=== PATIENT | female | born 1980 | race Caucasian/White ===

== ENCOUNTER 2021-09-01 08:47 | Outpatient (CLI) | payer SELFPAY | END 2021-09-01 08:48 | disposition home or self-care (01) | LOC: ANHSURGERY 08:53 | PROVIDERS: PCP Family Medicine; Visit Provider Obstetrics & Gynecology | DX: R10.2 Pelvic and perineal pain (principal) | CPT/HCPCS: 36415; 86850; 86900; 86901 ==

== ENCOUNTER 2021-09-06 00:34 | Day surgery (SDC) | payer SELFPAY ==
[2021-08-31 12:54] VITALS: BMI 19.3
--- NOTE | 2021-08-31 13:22 | PC.NURSE ---
Report to the Outpatient Waiting Room, entrance under the green pavilion located off [facility], at time 10:00 on date 09/06/21. OR Time: 12:00. - You and your visitor will be asked a series of questions to screen for COVID 19 for your protection. - A mask is required within the hospital. - Only one visitor is allowed at this time. Patient visitors will be guided where to wait when not with patient. Preoperative COVID Testing Requirements: EMAIL POSITIVE RESULT FROM JUNE TO [email or web address] No COVID Test needed if: (proof is required; if not received patient will have Rapid Test prior to entry) - Patient has received COVID Vaccine at least 14 days prior to procedure date or - Patient has positive COVID test result within last 90 days of surgery date. COVID Test needed if above criteria is not met If not COVID vaccinated a COVID test must be conducted within 72 hours of surgery and patient is asked to isolate self from time of testing until procedure. You will go to the [employer] [facility] Testing Site for your COVID testing. The [employer] [facility] Testing site is located at the corner of [address] [facility]. You will only be called if COVID results are positive and your surgeon may reschedule your elective surgery date. Patients may have clear liquids (water, carbonated beverages, clear teas, apple juice) until 3 hours prior to surgery with a maximum of 20 ounces. - No food from midnight until time of surgery - Infants may have breast milk until 4 hours before surgery, formula 6 hours prior to surgery. - Children will be allowed to drink immediately following surgery. If applicable, please bring a bottle or sippy cup to assist with drinking. Juice, water, soda, and popsicles are readily available. For infants on formula, please bring formula the day of surgery. Pacifiers are allowed. Take the following medications with a SIP of water the morning of surgery: NONE Medications to discontinue per physician: VITAMINS/SUPPLEMENTS Date to take last dose: 09/02/21 Please no make-up, nail afghan, hairspray, perfume, deodorant, or body powder the day of surgery. No jewelry (including any body piercings) or valuables the day of surgery, leave them at home. Please take a shower or bath the night before, or the morning of, surgery with an antibacterial soap. Wear comfortable, loose fitting clothing. Children are encouraged to wear pajamas. - Jewelry must be removed prior to entering the operating room. Rings and piercings that are not removed may be cut off. - The hospital will not accept responsibility for valuables. - Please leave all valuables, including medications, at home the day of surgery. If you are going home after surgery, a licensed tower truck driver must drive you home. - NO public transportation without another adult. - We recommend that an adult stay with you for 24 hours following discharge. - We also recommend that you do not drive, make important decision, drink alcoholic beverages, or take any drugs that were not prescribed by your health care provider for at least 24 hours after your discharge time. For Pediatric surgeries, we recommend two adults accompany the child home (only one inside the building at this time). Follow any additional instructions given to you from your surgeon. Telephone instructions given to ASHLYN ELAM and asked if any additional questions and then verbalized understanding. Patient advised to call surgeon office or pre surgery nurse liaison [phone] if any additional questions.
[2021-09-06] VITALS (8 sets, daily range): BP systolic 109–137; BP diastolic 54–85; PULSE 80–100; RESP 14–20; TEMP 36.6–36.8; O2SAT 100
--- NOTE | 2021-09-06 12:25 | PM.IMHP ---
H&P: HPI History of Present Illness Date/Time: 09/06/21 12:25 40 y/o nulligravida with longstanding low pelvic pain, irregular menses, and intermenstrual spotting. Ultrasound in January showed an unremarkable endometrial complex, functional change in the left adnexa. She is worried that we will try to give her a COVID vaccine while she is asleep. Her chiropractor and business and marketing teacher-father have both advised her against COVID vaccination. Chief Complaint: Pain and bleeding Review of Systems Review of Systems: All systems reviewed & are unremarkable except as noted in HPI and below PMFSH Past Medical History Medical History (Updated 09/06/21 @ 12:29 by Al Ledesma MD) Left lateral epicondylitis Patient request for diagnostic testing Radiculopathy, cervical region Tear of left rotator cuff Surgical History Surgical History History of breast biopsy Family History Family History Other Diabetes mellitus Family history of anemia Family history of arthritis Family history of malignant neoplasm of breast Family history of malignant neoplasm of breast in first degree relative Family history of malignant neoplasm of thyroid Family history of mental disorder Social History Social History Smoking packs per day: 1 Smoking cigarettes per day: 20.0 Years smoked: 8 Smoking pack-years: 8.00 Tobacco type: cigarettes Smoking end date: 09/30/07 Alcohol intake: never Alcohol use details: A COUPLE/MONTH Substance use: never Substance use type: does not use Living arrangements: with family Spiritual care concerns: No Meds Home Medications and Allergies Home Medications Medication Instructions Recorded Confirmed Type ascorbic acid (vitamin C) 1,000 mg 1 gm PO DAILY 11/19/19 08/31/21 History tablet elderberry fruit 200 mg capsule 200 mg PO BID cap 11/19/19 08/31/21 History omega-3 fatty acids 1,000 mg 2,000 mg PO DAILY cap 11/19/19 08/31/21 History capsule Allergies Allergy/AdvReac Type Severity Reaction Status Date / Time cephalexin Allergy Unknown stomach Verified 08/31/21 12:51 upset Gadolinium-Containing Allergy Unknown Unknown Verified 08/31/21 12:51 Contrast Medi STEROID Allergy Severe Anaphylaxis Uncoded 08/31/21 12:51 Exam Const: Orientation/consciousness: patient oriented x3 Other: Well-developed, well-nourished female in no acute distress. Neck: Thyroid: thyroid normal Lymphatic: no lymphadenopathy noted (in neck, axilla or inguinal nodes) Resp: Effort & Inspection: normal respiratory effort Auscultation: clear to auscultation bilaterally Cardio: Rate: regular rate Rhythm: regular rhythm Heart sounds: S1 normal heart sound present and S2 normal heart sound present GI: Other: ABD: Soft, nontender, nondistended. No guarding or rebound tenderness. No hepatosplenomegaly. : General: Yes no CVA tenderness Other: External genitalia: normal female hair distribution, without lesion. Urethral meatus: no lesion, non prolapsed. Bladder: no mass, nontender Vagina: well-estrogenized, without lesion or discharge. No cystocele or rectocele. Cervix: no lesion or discharge. Uterus: small, anteverted, freely mobile, nontender Adnexa: no mass or tenderness. Anus/perineum: no lesions, nontender Back/Spine/Pelvis: Back: no CVA tenderness Skin: General skin exam: normal color and no rashes or lesions noted Neuro: General: patient oriented x3 Extrem: Other: Extremities: nontender with no edema Psych: Mental Status: mental status grossly normal Affect: normal affect Assessment and Plan Assessment and plan (1) Pelvic pain: Code(s): R10.2 - Pelvic and perineal pain Status: Acute Assessment and Plan: A: Longstanding pelvic pain, irregular menses with intermenstrual spotti
[2021-09-06] MEDS: LACTATED RINGERS 1,000 ML 30 ML IV CONT ×2 (13:40→16:36)
[2021-09-06] MEDS: KETOROLAC 15 MG/ML VIAL (*BKC) IV PUSH (13:47)
--- NOTE | 2021-09-06 14:14 | P.PNAN_ITS ---
Anes - Initial Pre Proc Eval Procedure: Operation Date: 09/06/21 12:00 Proposed Procedures p Diagnostic Laparoscopy, Hysteroscopy, Dilatation and Curettage - Al Ledesma MD Date/Time: 09/06/21 14:14 Surgeon: Al Ledesma MD Pre Op Diagnosis: pelvic pain, irregular bleeding Patient Data Age: 40 Gender: F Height: 1.68 m Weight: 54.43 kg Allergies Allergy/AdvReac Type Severity Reaction Status Date / Time cephalexin Allergy Unknown stomach Verified 08/31/21 12:51 upset Gadolinium-Containing Allergy Unknown Unknown Verified 08/31/21 12:51 Contrast Medi STEROID Allergy Severe Anaphylaxis Uncoded 08/31/21 12:51 Home Medications Medication Instructions Recorded Confirmed Type ascorbic acid (vitamin C) 1,000 mg 1 gm PO DAILY 11/19/19 08/31/21 History tablet elderberry fruit 200 mg capsule 200 mg PO BID cap 11/19/19 08/31/21 History omega-3 fatty acids 1,000 mg 2,000 mg PO DAILY cap 11/19/19 08/31/21 History capsule Patient hx anesthesia problems: none Family hx anesthesia problems: none Results Review: All pre-operative results and documents have been reviewed as part of the pre-operative evaluation. [facility] Past Medical History Medical History (Updated 09/06/21 @ 12:29 by Al Ledesma MD) Left lateral epicondylitis Patient request for diagnostic testing Radiculopathy, cervical region Tear of left rotator cuff Surgical History Surgical History History of breast biopsy Family History Family History Other Diabetes mellitus Family history of anemia Family history of arthritis Family history of malignant neoplasm of breast Family history of malignant neoplasm of breast in first degree relative Family history of malignant neoplasm of thyroid Family history of mental disorder Social History Social History Smoking packs per day: 1 Smoking cigarettes per day: 20.0 Years smoked: 8 Smoking pack-years: 8.00 Tobacco type: cigarettes Smoking end date: 09/30/07 Alcohol intake: never Alcohol use details: A COUPLE/MONTH Substance use: never Substance use type: does not use Living arrangements: with family Spiritual care concerns: No Anes - Eval Final PreProcedure Day of Procedure 09/06/21 14:14 Patient weight: thin Heart: regular rate and rhythm Lungs: clear to auscultation and normal air movement Airway: Mallampati scale class IV Neurological: alert and oriented Last oral intake: >/= 8 hours ASA classification: II Emergent: no Anesthetic plan: proceed Anesthesia type and monitoring: general ETT and standard monitoring Results Review: All pre-operative results and documents have been reviewed as part of the pre-operative evaluation. Informed Consent: The patient's anesthetic plan and its attendant risks and benefits were discussed with the patient/family/POA. Questions were solicited and answers provided to the satisfaction of the patient/family/POA.
--- NOTE | 2021-09-06 14:23 | WPDHPUPDATE1 ---
History and Physical Update Update Date/Time: 09/06/21 14:23 History and Physical has been reviewed, including an updated exam of the patient. There are NO changes in the patient's condition. Risks, benefits, and alternatives have been discussed and questions answered. Patient agrees to proceed with procedure.
[2021-09-06] MEDS: LIDOCAINE HCL 1% PF 30 ML VIAL 10 ML INFILTRATE (16:01)
--- NOTE | 2021-09-06 16:35 | W.PM.PROC2 ---
Procedure Note - Detailed Date of Procedure 09/06/21 Pre-op Diagnosis Pelvic pain Irregular vaginal bleeding Post-op Diagnosis same Procedure Performed Diagnostic laparoscopy Hysteroscopy Dilation and sharp curettage Surgeon Al Ledesma MD Anesthesia general and local (1% lidocaine) Findings Liver unremarkable. Vermiform appendix not seen. Uterus, bilateral round and uterosacral ligaments, bilateral tubes and ovaries, anterior and posterior cul de sac all unremarkable. Endometrial cavity with thick tissue, both tubal ostia seen. Description of Procedure The patient was taken to the operating room where general endotracheal anesthesia was administered. She was prepared and draped in the usual sterile fashion in the dorsal lithotomy position. The bladder was drained with a red rubber catheter. A sterile speculum was inserted into the vagina and the anterior lip of the cervix was grasped with a single-toothed tenaculum. The acorn uterine manipulator was placed. The speculum was withdrawn. Gloves were changed and attention was turned to the abdomen. An infraumbilical skin incision was made with a scalpel. The abdomen was tented and a 5 millimeter bladeless trocar trocar was advanced under direct laparoscopic visualization. Pneumoperitoneum was administered using carbon dioxide gas. A survey of the pelvis and abdomen yielded the findings noted above. Hemostasis was excellent. The trocar was withdrawn and the gas was allowed to escape. The skin incision was reapproximated using 4-0 Vicryl in interrupted subcuticular fashion. Dermaflex was applied externally. Attention was then redirected to the vagina, where the acorn uterine manipulator was withdrawn and the speculum reintroduced. Ten mL of 1% lidocaine was administered in a paracervical block. The cervix was then gently dilated using Hegar dilators until an 8 mm dilator could be passed. Hysteroscopy was performed using sterile saline as a distention medium. Findings are as noted above. Sharp curettage was then performed, and endometrial curettings were collected on a Telfa pad and passed off to be sent to pathology. Hemostasis was excellent. Sponge, lap, needle and instrument counts were correct. The patient was awakened and taken to the recovery room in stable condition. I was present and scrubbed through the entire procedure. Implants None Estimated Blood Loss 5 Drains No Packing No Pathology yes (endometrial curettings) Complications None Condition stable Disposition PACU
[2021-09-06] MEDS: oxyCODONE HCL (*CRX) 5 MG TAB IR PO (18:15)
== END 2021-09-06 19:05 | disposition home or self-care (01) ==
PROVIDERS: PCP Family Medicine; Visit Provider Obstetrics & Gynecology
PROC: 0UDB8ZZ Extraction of Endometrium, Via Natural or Artificial Opening Endoscopic (ICD-10-PCS; CPT 58558; principal; 2021-09-06 12:00)
PROC: 0U5B8ZZ Destruction of Endometrium, Via Natural or Artificial Opening Endoscopic (ICD-10-PCS; CPT 58563; 2021-09-06 12:00)
DX: R10.2 Pelvic and perineal pain (principal); N92.1 Excessive and frequent menstruation with irregular cycle; Z87.891 Personal history of nicotine dependence
CPT/HCPCS: 58558; 49320; 88305; A9270; J0131; J0330; J1100; J1885; J2250; J2405; J2704; J3010; J7030; J7120

== ENCOUNTER 2021-12-25 10:14 | Emergency (ER) | payer SELFPAY ==
--- NOTE | ~2021-12-25 | XR_ITS ---
EXAMINATION: XR chest 2V EXAM DATE: 12/25/2021 11:20 INDICATION: Cough and congestion, symptoms one week. TECHNIQUE: Frontal and lateral projections of the chest obtained and reviewed. Comparison is made to prior examination from 04/22/2018. FINDINGS: Mild to moderate hyperinflation. The lungs are clear. There are no pleural effusions. The cardiomediastinal silhouette is within normal limits. There is no pneumothorax suspected. The bone s and soft tissues are unremarkable. IMPRESSION: Mild to moderate hyperinflation unchanged. Reviewed, dictated and finalized at location B.
[2021-12-25 10:18] VITALS: BP 120/75; PULSE 114; RESP 14; TEMP 36.8; O2SAT 100
--- NOTE | 2021-12-25 11:10 | ED.URI ---
HPI - URI/Sore Throat General Chief Complaint: Upper Respiratory Infection Stated Complaint: cough and congestion Time Seen by Provider: 12/25/21 10:59 Source: patient and RN notes reviewed Mode of arrival: ambulatory Limitations: no limitations History of Present Illness HPI Narrative: Patient presents today complaining of 7-day history of productive cough, nasal congestion and ear popping. Denies fever, shortness of breath. She did a telemedicine visit with her PCP and was given a prescription for albuterol and [id number] Mucinex D. States she had a negative COVID-19 and influenza tests. Reports her PCP told her to come in for possible chest x-ray. MD elicited complaint: cough Related Data Home Medications Medication Instructions Recorded Confirmed ascorbic acid (vitamin C) 1,000 mg 1 gm PO DAILY 11/19/19 12/25/21 tablet coenzyme Q10 10 mg capsule 10 mg PO ONCE 10/31/21 12/25/21 Allergies Allergy/AdvReac Type Severity Reaction Status Date / Time cephalexin Allergy Unknown stomach Verified 12/25/21 10:46 upset Gadolinium-Containing Allergy Unknown Unknown Verified 12/25/21 10:46 Contrast Medi STEROID Allergy Severe Anaphylaxis Uncoded 12/25/21 10:46 Review of Systems Review of Systems: CONSTITUTIONAL: Denies body aches, fever, chills, or sweats. EYES: Denies visual changes, redness, or discharge. ENT: Denies rhinorrhea, sore throat, or otalgia.+ Congestion CARDIOVASCULAR: Denies chest pain, palpitations, or edema. RESPIRATORY: Denies dyspnea.+ Cough GASTROINTESTINAL: Denies abdominal pain, nausea, vomiting, or diarrhea. GENITOURINARY: Denies dysuria or hematuria. SKIN: Denies rash, itching, or wounds. MUSCULOSKELETAL: Denies back pain, joint pain, or myalgia. NEUROLOGIC: Denies headache, numbness, tingling, or weakness. PSYCH: Denies depression or anxiety. [facility] Past Medical History Medical History Left lateral epicondylitis Patient request for diagnostic testing Radiculopathy, cervical region Tear of left rotator cuff Surgical History Surgical History History of breast biopsy Family History Family History Other Diabetes mellitus Family history of anemia Family history of arthritis Family history of malignant neoplasm of breast Family history of malignant neoplasm of breast in first degree relative Family history of malignant neoplasm of thyroid Family history of mental disorder Social History Social History Smoking packs per day: 1 Smoking cigarettes per day: 20.0 Years smoked: 8 Smoking pack-years: 8.00 Tobacco type: cigarettes Smoking end date: 09/30/07 Alcohol intake: never Alcohol use details: A COUPLE/MONTH Substance use: never Substance use type: does not use Spiritual care concerns: No Comments At time of signature, I have reviewed and agree with nursing past medical, surgical, social and family history unless otherwise noted. Please see nursing chart for further information. There is no relevant family history pertinent to the presenting complaint Exam Narrative: GENERAL: Well-appearing, well-nourished, and in no acute distress. HEAD: Normocephalic, atraumatic. EYES: EOMI. No redness or drainage. Conjunctivae normal. ENT: Mucous membranes pink and moist. Nares clear. No rhinorrhea. TMs normal bilaterally. Throat normal. Uvula midline. NECK: Normal AROM. Supple. No lymphadenopathy. CHEST: No respiratory distress. Clear to auscultation. HEART: Regular rate and rhythm. No murmur appreciated. Normal peripheral pulses. EXTREMITIES: Normal range of motion. No edema. SKIN: Warm, dry, no rash. Capillary refill normal. Normal skin turgor. NEURO: No focal deficits. Alert and oriented x3. Gait
== END 2021-12-25 12:05 | disposition home or self-care (01) ==
PROVIDERS: Emergency Provider Nurse Practitioner; PCP Family Medicine
DX: J40 Bronchitis, not specified as acute or chronic (principal); J06.9 Acute upper respiratory infection, unspecified; Z87.891 Personal history of nicotine dependence; M54.12 Radiculopathy, cervical region
CPT/HCPCS: 71046; 99213; G0463

== ENCOUNTER 2022-01-08 09:23 | Emergency (ER) | payer SELFPAY ==
--- NOTE | ~2022-01-08 | XR_ITS ---
EXAMINATION: XR chest 2V DATE: 01/08/2022 09:50 INDICATION: Cough TECHNIQUE: PA and lateral views of the chest are obtained. COMPARISON: 12/25/2021 FINDINGS: The lungs are free of acute opacities. There is no pleural effusion or pneumothorax. The ca rdiomediastinal silhouette is normal. The visualized bones and soft tissues are unremarkable. Calcifi ed mediastinal and left hilar lymph nodes are consistent with old granulomatous disease. IMPRESSION: 1. No acute cardiopulmonary abnormality. Reviewed, dictated and finalized at location A.
--- NOTE | 2022-01-08 09:25 | ED.URI ---
HPI - URI/Sore Throat General Chief Complaint: Upper Respiratory Infection Stated Complaint: Deep Cough Time Seen by Provider: 01/08/22 09:25 Source: patient and RN notes reviewed History of Present Illness HPI Narrative: Patient is a 41-year-old female who presents the urgent care with complaints of cough and congestion. Patient states that it started approximately 3 weeks ago. Her PCP originally gave her an inhaler which did not do anything . Patient was then placed on amoxicillin on 12/25 from our facility and had a negative chest x-ray at that time. Patient has not taken anything [id number] for her symptoms. Patient states her PCP is out of town and she was told to go back to urgent care . Patient denies of any fever, chills, nausea, vomiting. Denies any shortness of breath or wheezing. No other complaints. No acute distress noted. Patient aware of the plan of care. Some parts of this dictation were generated by voice recognition software and may contain typographical and/or grammatical inaccuracies. Related Data Home Medications Medication Instructions Recorded Confirmed ascorbic acid (vitamin C) 1,000 mg 1 gm PO DAILY 11/19/19 01/08/22 tablet coenzyme Q10 10 mg capsule 10 mg PO ONCE 10/31/21 01/08/22 Allergies Allergy/AdvReac Type Severity Reaction Status Date / Time cephalexin Allergy Unknown stomach Verified 01/08/22 09:40 upset Gadolinium-Containing Allergy Unknown Unknown Verified 01/08/22 09:40 Contrast Medi STEROID Allergy Severe Anaphylaxis Uncoded 01/08/22 09:40 Review of Systems Review of Systems: CONSTITUTIONAL: Denies fever, chills, or sweats. EYES: Denies visual changes, redness, or discharge. ENT: Denies rhinorrhea, congestion, sore throat, or otalgia. CARDIOVASCULAR: Denies chest pain, palpitations, or edema. RESPIRATORY: Reports of chest congestion and cough without dyspnea GASTROINTESTINAL: Denies abdominal pain, nausea, vomiting, or diarrhea. GENITOURINARY: Denies dysuria or hematuria. SKIN: Denies rash or itching. MUSCULOSKELETAL: Denies back pain, joint pain, or myalgia. NEUROLOGIC: Denies headache, numbness, or weakness. All other systems reviewed are negative, except as documented in HPI. [facility] Past Medical History Medical History Left lateral epicondylitis Patient request for diagnostic testing Radiculopathy, cervical region Tear of left rotator cuff Surgical History Surgical History History of breast biopsy Family History Family History Other Diabetes mellitus Family history of anemia Family history of arthritis Family history of malignant neoplasm of breast Family history of malignant neoplasm of breast in first degree relative Family history of malignant neoplasm of thyroid Family history of mental disorder Social History Social History Smoking packs per day: 1 Smoking cigarettes per day: 20.0 Years smoked: 8 Smoking pack-years: 8.00 Tobacco type: cigarettes Smoking end date: 09/30/07 Alcohol intake: never Alcohol use details: A COUPLE/MONTH Substance use: never Substance use type: does not use Spiritual care concerns: No Comments At the time of my signature, I reviewed and agree with the nursing past medical, surgical, social, and family history. There is no relevant family history pertinent to the patient complaint. Exam Narrative: GENERAL: This is a well-nourished, well-developed patient, in no apparent distress. HEAD: normocephalic, atraumatic. EYES: PERRL. Sclera clear/white. Vision is grossly intact. EARS: External ears normal, auditory canals clear and without drainage, TMs normal without perforation. Hearing grossly intact. NOSE: External nose normal with no obvious
[2022-01-08 09:28] VITALS: BP 108/73; PULSE 110; RESP 16; TEMP 37.2; O2SAT 100
== END 2022-01-08 10:05 | disposition home or self-care (01) ==
PROVIDERS: Emergency Provider Nurse Practitioner Family; PCP Family Medicine
DX: J40 Bronchitis, not specified as acute or chronic (principal); Z87.891 Personal history of nicotine dependence
CPT/HCPCS: 71046; 99213; G0463

== ENCOUNTER 2022-01-08 17:09 | Emergency (ER) | payer SELFPAY ==
[2022-01-08 17:38] VITALS: BP 152/92; PULSE 98; RESP 16; TEMP 36.3; O2SAT 100
--- NOTE | 2022-01-08 20:15 | ED.URI ---
HPI - URI/Sore Throat General Chief Complaint: Upper Respiratory Infection Stated Complaint: bronchitis issues Time Seen by Provider: 01/08/22 19:32 Source: patient History of Present Illness HPI Narrative: Patient presents with concern for bronchitis. Prescription has had a cough for the past couple weeks and her primary care doctor and urgent care she has been treated with albuterol amoxicillin however she continues have symptoms so she came to the ER for evaluation. Reports his cough is nonproductive she also reports a lot of sinus pressure she initially had fevers and those have now resolved. Reports has had multiple Covid test which were negative chest x-rays which were unremarkable. She denies any nausea vomiting or diarrhea. 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 Related Data Home Medications Medication Instructions Recorded Confirmed ascorbic acid (vitamin C) 1,000 mg 1 gm PO DAILY 11/19/19 01/08/22 tablet coenzyme Q10 10 mg capsule 10 mg PO ONCE 10/31/21 01/08/22 Allergies Allergy/AdvReac Type Severity Reaction Status Date / Time cephalexin Allergy Unknown stomach Verified 01/08/22 09:40 upset Gadolinium-Containing Allergy Unknown Unknown Verified 01/08/22 09:40 Contrast Medi STEROID Allergy Severe Anaphylaxis Uncoded 01/08/22 09:40 Review of Systems Review of Systems: CONSTITUTIONAL: Denies fever, chills, or sweats. EYES: Denies visual changes, redness, or discharge. ENT: Denies rhinorrhea, congestion, sore throat, or otalgia. CARDIOVASCULAR: Denies chest pain, palpitations, or edema. RESPIRATORY: Denies dyspnea. GASTROINTESTINAL: Denies abdominal pain, nausea, vomiting, or diarrhea. GENITOURINARY: Denies dysuria or hematuria. SKIN: Denies rash or itching. MUSCULOSKELETAL: Denies back pain, joint pain, or myalgia. NEUROLOGIC: Denies headache, numbness, dizziness, or weakness. PSYCHIATRIC: Denies anxiety or depression. All systems reviewed & are unremarkable except as noted in HPI and below PMFSH Past Medical History Medical History Left lateral epicondylitis Patient request for diagnostic testing Radiculopathy, cervical region Tear of left rotator cuff Surgical History Surgical History History of breast biopsy Family History Family History Other Diabetes mellitus Family history of anemia Family history of arthritis Family history of malignant neoplasm of breast Family history of malignant neoplasm of breast in first degree relative Family history of malignant neoplasm of thyroid Family history of mental disorder Social History Social History Smoking packs per day: 1 Smoking cigarettes per day: 20.0 Years smoked: 8 Smoking pack-years: 8.00 Tobacco type: cigarettes Smoking end date: 09/30/07 Alcohol intake: never Alcohol use details: A COUPLE/MONTH Substance use: never Substance use type: does not use Spiritual care concerns: No Exam Narrative: GENERAL: Well-appearing, well-nourished, and in no acute distress. HEAD: Normocephalic, atraumatic. EYES: PERRLA and EOMI. ENT: Nares clear, no rhinorrhea or epistaxis. Mucous membranes moist. NECK: Supple. No masses. No JVD CHEST: Clear to auscultation. No respiratory distress. No wheezes rales or rhonchi HEART: Regular rate and rhythm. No murmur heard. Normal peripheral pulses. EXTREMITIES: Normal range of motion. No edema. SKIN: Warm, dry, no rash. NEURO: No focal deficits. Alert and oriented x3. PSYCH: Normal mood and affect. Course Vital Signs Vital signs: Vital Signs Temperature 36.3 C L 01/08/22 17:38 Pulse Rate 98 01/08/22 17:38 Respiratory Rate 16 01/08/22 17:38 Blood Pressure 152/92 H 01/08/22 17:38 Pulse Oximetry 100
[2022-01-08 20:33] VITALS: PULSE 78; RESP 18; O2SAT 99
== END 2022-01-08 20:34 | disposition home or self-care (01) ==
PROVIDERS: Emergency Provider Emergency Medicine; PCP Family Medicine
DX: R05.9 Cough, unspecified (principal); F17.210 Nicotine dependence, cigarettes, uncomplicated
CPT/HCPCS: 99283

== ENCOUNTER 2022-03-01 17:28 | Emergency (ER) | payer SELFPAY ==
--- NOTE | ~2022-03-01 | XR_ITS ---
EXAMINATION: XR hand LT min 3V INDICATION: Left hand pain TECHNIQUE: Three views of the left hand are obtained. COMPARISON: None FINDINGS: Bone alignment is normal. No fracture is identified. Heterotopic ossification lateral to th e second distal interphalangeal joint has a chronic appearance. The joint spaces are normal. The soft tissues are unremarkable. IMPRESSION: 1. No acute osseous abnormality. Reviewed, dictated and finalized at location F.
[2022-03-01 17:33] VITALS: BP 109/72; PULSE 97; RESP 16; TEMP 36.9; O2SAT 100
--- NOTE | 2022-03-01 17:37 | ED.UPPEXIN ---
HPI - Extremity Injury (Upper) General Chief Complaint: Extremity Injury, Upper Stated Complaint: left hand injury Time Seen by Provider: 03/01/22 17:38 Source: patient and RN notes reviewed History of Present Illness HPI narrative: Patient is a 41-year-old female who presents the urgent care with complaints of left wrist/hand pain. 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 Patient states it happened at approximately 330 this afternoon and she has not taken anything for pain or used ice for comfort. No other acute plaints or injuries. No acute distress noted. Patient aware of the plan of care. Some parts of this dictation were generated by voice recognition software and may contain typographical and/or grammatical inaccuracies. Related Data Home Medications Medication Instructions Recorded Confirmed ascorbic acid (vitamin C) 1,000 mg 1 gm PO DAILY 11/19/19 01/24/22 tablet coenzyme Q10 10 mg capsule 10 mg PO ONCE 10/31/21 01/24/22 Allergies Allergy/AdvReac Type Severity Reaction Status Date / Time cephalexin Allergy Unknown stomach Verified 03/01/22 17:39 upset Gadolinium-Containing Allergy Unknown Unknown Verified 03/01/22 17:39 Contrast Medi STEROID Allergy Severe Anaphylaxis Uncoded 03/01/22 17:39 Review of Systems Review of Systems: CONSTITUTIONAL: Denies fever, chills, or sweats. EYES: Denies visual changes, redness, or discharge. ENT: Denies rhinorrhea, congestion, sore throat, or otalgia. CARDIOVASCULAR: Denies chest pain, palpitations, or edema. RESPIRATORY: Denies cough or dyspnea. GASTROINTESTINAL: Denies abdominal pain, nausea, vomiting, or diarrhea. GENITOURINARY: Denies dysuria or hematuria. SKIN: Denies rash or itching. MUSCULOSKELETAL: Left wrist/hand pain NEUROLOGIC: Denies headache, numbness, or weakness. All other systems reviewed are negative, except as documented in HPI. [facility] Past Medical History Medical History Left lateral epicondylitis Patient request for diagnostic testing Radiculopathy, cervical region Tear of left rotator cuff Surgical History Surgical History History of breast biopsy Family History Family History Other Diabetes mellitus Family history of anemia Family history of arthritis Family history of malignant neoplasm of breast Family history of malignant neoplasm of breast in first degree relative Family history of malignant neoplasm of thyroid Family history of mental disorder Social History Social History Smoking packs per day: 1 Smoking cigarettes per day: 20.0 Years smoked: 8 Smoking pack-years: 8.00 Tobacco type: cigarettes Smoking end date: 09/30/07 Alcohol intake: never Alcohol use details: A COUPLE/MONTH Substance use: never Substance use type: does not use Spiritual care concerns: No Comments At the time of my signature, I reviewed and agree with the nursing past medical, surgical, social, and family history. There is no relevant family history pertinent to the patient complaint. Exam Narrative: GENERAL: This is a well-nourished, well-developed patient, in no apparent distress. HEAD: normocephalic, atraumatic. EYES: PERRL. Sclera clear/white. Vision is grossly intact. EARS: External ears normal NOSE: External nose normal with no obvious nasal discharge, nares without redness, no rhinorrhea. THROAT: Mucous membranes moist NECK: Neck supple SKIN: warm, intact with no suspicious lesions or rash, good texture and turgor. NEURO: awake, alert, and oriented to person, place and time. There were no obvious focal neurologic abnormalities. EXTREMITIES: Small contusion with ecchymosis to t
== END 2022-03-01 18:13 | disposition home or self-care (01) ==
PROVIDERS: Emergency Provider Nurse Practitioner Family; PCP Family Medicine
DX: S60.212A Contusion of left wrist, initial encounter (principal); S60.222A Contusion of left hand, initial encounter; Y00.XXXA Assault by blunt object, initial encounter; Z87.891 Personal history of nicotine dependence
CPT/HCPCS: 73130; 99213; G0463

== ENCOUNTER 2022-08-15 13:15 | Emergency (ER) | payer SELFPAY ==
[2022-08-15 13:21] VITALS: BP 112/67; PULSE 103; RESP 16; TEMP 37.1; O2SAT 100
--- NOTE | 2022-08-15 13:40 | ED.URI ---
HPI - URI/Sore Throat General Chief Complaint: Upper Respiratory Infection Stated Complaint: Congestion/Ear Problem/Cough Time Seen by Provider: 08/15/22 13:40 Source: patient, RN notes reviewed and old records reviewed Mode of arrival: ambulatory Limitations: no limitations History of Present Illness HPI Narrative: 41-year-old female presents to [facility] with 4 day complaint of head congestion, ear pressure with crackling, chest congestion with expectoration of yellowish green sputum. Patient states she has also had some headaches and chills, does not known if she has had fevers or not but reports felt feverish. Patient reports that she did a COVID test at home which was negative this morning. Patient denies any shortness of breath or any wheezing states chest sore from coughing. MD elicited complaint: cough, rhinorrhea, nasal congestion and other (ear pain) Onset (ago): day(s) (4) Treatments prior to arrival: other (essential oils) Related Data Allergies Allergy/AdvReac Type Severity Reaction Status Date / Time cephalexin Allergy Unknown stomach Verified 08/15/22 13:33 upset Gadolinium-Containing Allergy Unknown Unknown Verified 08/15/22 13:33 Contrast Medi azithromycin Allergy Swelling Verified 08/15/22 14:35 STEROID Allergy Severe Anaphylaxis Uncoded 08/15/22 14:34 Review of Systems Review of Systems: CONSTITUTIONAL: Reports malaise, chills, sweats,felt feverish EYES: Denies visual changes, redness, or discharge. ENT: Reports rhinorrhea, congestion,no sinus pain,positive for bilateral otalgia, no sore throat. CARDIOVASCULAR: Denies chest pain, palpitations, or edema. RESPIRATORY: Reports cough.? Denies dyspnea, reports chest is sore from coughing GASTROINTESTINAL: Denies abdominal pain, nausea, vomiting, diarrhea SKIN: Denies rash or itching. MUSCULOSKELETAL: Denies myalgia. NEUROLOGIC: Reports headache. All systems reviewed & are unremarkable except as noted in HPI and below PMFSH Past Medical History Medical History (Updated 08/16/22 @ 00:00 by Brynn De La Fuente) Left lateral epicondylitis Patient request for diagnostic testing Radiculopathy, cervical region Tear of left rotator cuff Surgical History Surgical History (Updated 07/12/22 @ 11:08 by Sienna Melendez MA) H/O dilation and curettage History of breast biopsy Family History Family History Other Diabetes mellitus Family history of anemia Family history of arthritis Family history of malignant neoplasm of breast Family history of malignant neoplasm of breast in first degree relative Family history of malignant neoplasm of thyroid Family history of mental disorder Social History Social History (Updated 08/17/22 @ 15:03 by Lara Ramirez NP) Smoking packs per day: 1 Smoking cigarettes per day: 20.0 Years smoked: 8 Smoking pack-years: 8.00 Smoking status: Former smoker Tobacco type: cigarettes Smoking end date: 09/30/07 Alcohol intake: current Alcohol use details: A COUPLE/MONTH Substance use: never Substance use type: does not use Gender identity (if verbalized by the patient): Female Spiritual care concerns: No Comments At time of signature, agree with nursing past medical, surgical, social and family history. There is no relevant family history pertinent to the presenting complaint Exam Narrative: GENERAL: Well-appearing, well-nourished, and in no acute distress. HEAD: Normocephalic EYES: PERRLA, conjunctivae clear ENT: Nares clear, turbinates edematous and erythematous, clear discharge. Mucous membranes moist. TM pearly fowler with dull light reflex bilaterally; no tragal tenderness. Oropharynx erythematous without lesions. Tonsils not enlarged and without exudate, no drooling, no hoarseness, no trismus, uvula midline, post nasal drainage noted NECK: Supple. No lymphadenopathy CHEST: Clear to auscultatio
== END 2022-08-15 14:45 | disposition home or self-care (01) ==
PROVIDERS: Emergency Provider Registered Nurse; PCP Family Medicine
DX: J06.9 Acute upper respiratory infection, unspecified (principal); Z87.891 Personal history of nicotine dependence
CPT/HCPCS: 87804; 99213; G0463

== ENCOUNTER 2022-11-15 19:04 | Emergency (ER) | payer OTHER, SELFPAY ==
[2022-11-15 19:10] VITALS: BP 127/88; PULSE 105; RESP 16; TEMP 36.7; O2SAT 100
--- NOTE | 2022-11-15 19:22 | ED.URI ---
HPI - URI/Sore Throat General Chief Complaint: Upper Respiratory Infection Stated Complaint: cough congestion Source: patient and RN notes reviewed History of Present Illness HPI Narrative: 42-year-old female presents to urgent care with family at side. Patient states 2 days ago she began having congestion, runny nose, and pressure in her sinuses. Patient denies any fevers, chills, vomiting, diarrhea, or shortness of breath. Patient does report a cough as well and has chest pain and burning with coughing. Patient is not taking anything for her symptoms. Some parts of this dictation were generated by voice recognition software and may contain typographical and/or grammatical inaccuracies. Related Data Allergies Allergy/AdvReac Type Severity Reaction Status Date / Time cephalexin Allergy Unknown stomach Verified 11/15/22 19:11 upset Gadolinium-Containing Allergy Unknown Unknown Verified 11/15/22 19:11 Contrast Medi azithromycin Allergy Swelling Verified 11/15/22 19:11 STEROID Allergy Severe Anaphylaxis Uncoded 08/15/22 14:34 Review of Systems Review of Systems: CONSTITUTIONAL: Denies fever, chills, or sweats. EYES: Denies visual changes, redness, or discharge. ENT: Reports congestion and runny nose CARDIOVASCULAR: Denies chest pain, palpitations, or edema. RESPIRATORY: Denies cough or dyspnea. GASTROINTESTINAL: Denies abdominal pain, nausea, vomiting, or diarrhea. GENITOURINARY: Denies dysuria or hematuria. SKIN: Denies rash or itching. MUSCULOSKELETAL: Denies back pain, joint pain, or myalgia. NEUROLOGIC: Denies headache, numbness, or weakness. [facility] Past Medical History Medical History (Updated 11/15/22 @ 19:23 by Shayla Fields APRN) Left lateral epicondylitis Patient request for diagnostic testing Radiculopathy, cervical region Tear of left rotator cuff Surgical History Surgical History (Updated 07/12/22 @ 11:08 by Sienna Melendez MA) H/O dilation and curettage History of breast biopsy Family History Family History Other Diabetes mellitus Family history of anemia Family history of arthritis Family history of malignant neoplasm of breast Family history of malignant neoplasm of breast in first degree relative Family history of malignant neoplasm of thyroid Family history of mental disorder Social History Social History (Updated 08/17/22 @ 15:03 by Lara Ramirez NP) Smoking packs per day: 1 Smoking cigarettes per day: 20.0 Years smoked: 8 Smoking pack-years: 8.00 Smoking status: Former smoker Tobacco type: cigarettes Smoking end date: 09/30/07 Alcohol intake: current Alcohol use details: A COUPLE/MONTH Substance use: never Substance use type: does not use Living arrangements: with family Gender identity (if verbalized by the patient): Female Spiritual care concerns: No Comments At the time of my signature, I reviewed and agree with the nursing past medical, surgical, social, and family history. There is no relevant family history pertinent to the patient complaint. Exam Narrative: GENERAL: This is a well-nourished, well-developed patient, in no apparent distress. HEAD: normocephalic, atraumatic. EYES: PERRL. Sclera clear/white. Vision is grossly intact. EARS: External ears normal, auditory canals clear and without drainage, TMs normal without perforation. Hearing grossly intact. NOSE: External nose normal with no obvious nasal discharge, nares without redness, no rhinorrhea. THROAT: Mucous membranes moist, posterior pharynx clear. NECK: Neck supple, non-tender without lymphadenopathy, masses or thyromegaly. CARDIOVASCULAR: Regular rate and rhythm without murmurs, gallops, or rubs. RESPIRATORY: Clear to auscultation. Breath sounds equal bilaterally. No wheezes, rales, or rhonchi. GASTROINTESTINAL: Abdomen soft, non-tender, nondistended. Bowel sounds are active. No hepato-splenomeg
== END 2022-11-15 19:24 | disposition home or self-care (01) ==
PROVIDERS: Emergency Provider Nurse Practitioner Family; PCP Family Medicine
DX: J06.9 Acute upper respiratory infection, unspecified (principal); Z87.891 Personal history of nicotine dependence
CPT/HCPCS: 99213; G0463

== ENCOUNTER 2023-01-03 18:59 | Emergency (ER) | payer OTHER, SELFPAY ==
--- NOTE | ~2023-01-03 | XR_ITS ---
XR elbow LT min 3V DATE: 01/03/2023 19:22 INDICATION: Fall today, landing on left elbow. Pain with movement TECHNIQUE: 4 views COMPARISON: None FINDINGS: No fracture or dislocation or joint effusion. No periosteal reaction or bone destruction. IMPRESSION: Negative Reviewed, dictated and finalized at location A. IMPRESSION: Negative
--- NOTE | 2023-01-03 19:06 | ED.UPPEXIN ---
HPI - Extremity Injury (Upper) General Chief Complaint: Extremity Injury, Upper Stated Complaint: Fall Injury/Left Arm Source: patient and RN notes reviewed History of Present Illness HPI narrative: 42 yo F presents to urgent care with complaints of left elbow pain. Pt reports associated numbness and tingling to her left hand, intermittently. Pt states she was carrying a large box this am when she tripped and fell onto her left side. Pt states she landed on hardwood ton, onto her left elbow. Pt denies any head injury, neck pain, LOC, shoulder pain, abdominal pain, chest pain, or SOB. Related Data Allergies Allergy/AdvReac Type Severity Reaction Status Date / Time cephalexin Allergy Unknown stomach Verified 01/03/23 19:13 upset Gadolinium-Containing Allergy Unknown Unknown Verified 01/03/23 19:13 Contrast Medi azithromycin Allergy Swelling Verified 01/03/23 19:13 STEROID Allergy Severe Anaphylaxis Uncoded 01/03/23 19:13 Review of Systems Review of Systems: Pertinent positives and pertinent negatives per HPI. [facility] Past Medical History Medical History (Updated 01/03/23 @ 19:39 by Shayla Fields APRN) Left lateral epicondylitis Patient request for diagnostic testing Radiculopathy, cervical region Tear of left rotator cuff Surgical History Surgical History (Updated 07/12/22 @ 11:08 by Sienna Melendez MA) H/O dilation and curettage History of breast biopsy Family History Family History Other Diabetes mellitus Family history of anemia Family history of arthritis Family history of malignant neoplasm of breast Family history of malignant neoplasm of breast in first degree relative Family history of malignant neoplasm of thyroid Family history of mental disorder Social History Social History (Updated 08/17/22 @ 15:03 by Lara Ramirez NP) Smoking packs per day: 1 Smoking cigarettes per day: 20.0 Years smoked: 8 Smoking pack-years: 8.00 Smoking status: Former smoker Tobacco type: cigarettes Smoking end date: 09/30/07 Alcohol intake: current Alcohol use details: A COUPLE/MONTH Substance use: never Substance use type: does not use Living arrangements: with family Gender identity (if verbalized by the patient): Female Spiritual care concerns: No Comments At the time of my signature, I reviewed and agree with the nursing past medical, surgical, social, and family history. There is no relevant family history pertinent to the patient complaint. Exam Narrative: GENERAL: This is a well-nourished, well-developed patient, in no apparent distress. HEAD: normocephalic, atraumatic. EYES: PERRL. Sclera clear/white. Vision is grossly intact. EARS: External ears normal, auditory canals clear and without drainage, TMs normal without perforation. Hearing grossly intact. NOSE: External nose normal with no obvious nasal discharge, nares without redness, no rhinorrhea. THROAT: Mucous membranes moist, posterior pharynx clear. NECK: Neck supple, non-tender without lymphadenopathy, masses or thyromegaly. CARDIOVASCULAR: Regular rate RESPIRATORY: Clear to auscultation. Breath sounds equal bilaterally. No wheezes, rales, or rhonchi. GASTROINTESTINAL: Abdomen soft, non-tender, nondistended. Bowel sounds are active. No hepato-splenomegaly, or palpable masses. No guarding. SKIN: warm, intact with no suspicious lesions or rash, good texture and turgor. NEURO: awake, alert, and oriented to person, place and time. There were no obvious focal neurologic abnormalities. EXTREMITIES: Full ROM without issue. Pt slightly tender over lateral elbow. Course Course Level of Care: Express Care Visit Vital Signs Vital signs: Vital Signs Temperature 98.8 F 01/03/23 19:13 Pulse Rate 85 01/03/23 19:13 Respiratory Rate 16 01/03/23 19:13 Blood Pressure 117/84 01/03/23 19:13 Pulse Oximetry 100 01/03/23 19:13 Oxygen
[2023-01-03 19:13] VITALS: BP 117/84; PULSE 85; RESP 16; TEMP 37.1; O2SAT 100
== END 2023-01-03 19:48 | disposition home or self-care (01) ==
PROVIDERS: Emergency Provider Nurse Practitioner Family; PCP Family Medicine
DX: S50.02XA Contusion of left elbow, initial encounter (principal); W01.0XXA Fall on same level from slipping, tripping and stumbling without subsequent striking against object, initial encounter
CPT/HCPCS: 73080; 99213; G0463

== ENCOUNTER 2023-01-30 15:32 | Emergency (ER) | payer OTHER, SELFPAY ==
--- NOTE | ~2023-01-30 | XR_ITS ---
EXAM: XR ankle LT min 3V DATE: 01/30/2023 16:07 HISTORY: HIT IN LATERAL ANKLE, BRUISING/PAIN AT LATERAL MALLEOLUS . COMPARISON: None available. FINDINGS: Decreased mineralization. No fracture or dislocation. No lytic or blastic lesion. Joint sp aces are maintained. No erosion or periosteal change. Soft tissues within normal limits. IMPRESSION: No acute osseous finding in the left ankle. Reviewed, dictated and finalized at location K.
[2023-01-30 15:38] VITALS: BP 124/74; PULSE 100; RESP 16; TEMP 37.2; O2SAT 100
--- NOTE | 2023-01-30 16:11 | ED.LOWEXIN ---
HPI - Extremity Injury (Lower) General Chief Complaint: Extremity Injury, Lower Stated Complaint: cough/left ankle injury Source: patient and RN notes reviewed History of Present Illness HPI Narrative: 42-year-old female presents to urgent care with daughter at side. Patient reports a slight cough on with her daughter. Patient is also reporting left lateral ankle pain and swelling after a toddler hit her left lateral ankle with a plastic truck prior to arrival. Denies any fevers, chills, shortness of breath, chest pain, ear pain, sore throat, abdominal pain, or vomiting. Patient does report bilateral ear pressure. Some parts of this dictation were generated by voice recognition software and may contain typographical and/or grammatical inaccuracies. Related Data Home Medications Medication Instructions Recorded Confirmed No Home Medications 01/30/23 01/30/23 Allergies Allergy/AdvReac Type Severity Reaction Status Date / Time cephalexin Allergy Unknown stomach Verified 01/30/23 15:39 upset Gadolinium-Containing Allergy Unknown Unknown Verified 01/30/23 15:39 Contrast Medi azithromycin Allergy Swelling Verified 01/30/23 15:39 STEROID Allergy Severe Anaphylaxis Uncoded 01/30/23 15:39 Review of Systems Review of Systems: Pertinent positives and pertinent negatives per HPI. FORMERLY [facility] Past Medical History Medical History (Updated 01/30/23 @ 16:16 by Shayla Fields, MAGUE) Left lateral epicondylitis Patient request for diagnostic testing Radiculopathy, cervical region Tear of left rotator cuff Surgical History Surgical History (Updated 07/12/22 @ 11:08 by Sienna Melendez MA) H/O dilation and curettage History of breast biopsy Family History Family History Other Diabetes mellitus Family history of anemia Family history of arthritis Family history of malignant neoplasm of breast Family history of malignant neoplasm of breast in first degree relative Family history of malignant neoplasm of thyroid Family history of mental disorder Social History Social History (Updated 08/17/22 @ 15:03 by Lara Ramirez NP) Smoking packs per day: 1 Smoking cigarettes per day: 20.0 Years smoked: 8 Smoking pack-years: 8.00 Smoking status: Former smoker Tobacco type: cigarettes Smoking end date: 09/30/07 Alcohol intake: current Alcohol use details: A COUPLE/MONTH Substance use: never Substance use type: does not use Living arrangements: with family Gender identity (if verbalized by the patient): Female Spiritual care concerns: No Comments At the time of my signature, I reviewed and agree with the nursing past medical, surgical, social, and family history. There is no relevant family history pertinent to the patient complaint. Exam Narrative: GENERAL: This is a well-nourished, well-developed patient, in no apparent distress. HEAD: normocephalic, atraumatic. EYES: Sclera clear/white. Vision is grossly intact. EARS: External ears normal, auditory canals clear and without drainage, TMs normal without perforation. Hearing grossly intact. NOSE: External nose normal with no obvious nasal discharge, nares without redness, no rhinorrhea. THROAT: Mucous membranes moist, posterior pharynx clear. NECK: Neck supple, non-tender without lymphadenopathy, masses or thyromegaly. CARDIOVASCULAR: Regular rate and rhythm without murmurs, gallops, or rubs. RESPIRATORY: Clear to auscultation. Breath sounds equal bilaterally. No wheezes, rales, or rhonchi. SKIN: warm, intact with no suspicious lesions or rash, good texture and turgor. NEURO: awake, alert, and oriented to person, place and time. There were no obvious focal neurologic abnormalities. EXTREMITIES: Mild edema noted to left lateral ankle. BACK: Nontender without deformity or crepitance. No flank tenderness. Course Course Level of Care: Express Care Visit Vital
== END 2023-01-30 16:20 | disposition home or self-care (01) ==
PROVIDERS: Emergency Provider Nurse Practitioner Family; PCP Family Medicine
DX: R05.1 Acute cough (principal); S90.02XA Contusion of left ankle, initial encounter; W22.8XXA Striking against or struck by other objects, initial encounter; Z87.891 Personal history of nicotine dependence
CPT/HCPCS: 73610; 99213; G0463

== ENCOUNTER 2023-02-06 18:00 | Emergency (ER) | payer OTHER, SELFPAY ==
--- NOTE | ~2023-02-06 | XR_ITS ---
EXAMINATION: XR chest 2V Exam Date/Time: 02/06/2023 18:45 CDT HISTORY: PRODUCTIVE COUGH X 10 DAYS Comparison: 01/08/2022. RESULT: Lines, tubes, and devices: None. Lungs and pleura: Clear. Cardiomediastinal silhouette: Stable. Calcified hilar lymph node. Other: No acute osseous or upper abdominal finding. IMPRESSION: No acute cardiopulmonary process. Reviewed, dictated and finalized at location K.
[2023-02-06 18:10] VITALS: BP 115/76; PULSE 120; RESP 18; TEMP 37.5; O2SAT 100
--- NOTE | 2023-02-06 19:14 | ED.URI ---
HPI - URI/Sore Throat General Chief Complaint: Upper Respiratory Infection Stated Complaint: cough/wants x ray Time Seen by Provider: 02/06/23 19:10 Source: patient and RN notes reviewed Mode of arrival: ambulatory Limitations: no limitations History of Present Illness HPI Narrative: 42-year-old female presents with concern for 2 week history of cough, nasal congestion, ear pressure, rib pain from coughing. Reports productive cough. Reports she has been taking [id number] medications without relief. She denies fever. Reports chills MD elicited complaint: cough and nasal congestion Related Data Allergies Allergy/AdvReac Type Severity Reaction Status Date / Time cephalexin Allergy Unknown stomach Verified 02/06/23 18:27 upset Gadolinium-Containing Allergy Unknown Unknown Verified 02/06/23 18:27 Contrast Medi azithromycin Allergy Swelling Verified 02/06/23 18:27 STEROID Allergy Severe Anaphylaxis Uncoded 02/06/23 18:27 Review of Systems Review of Systems: CONSTITUTIONAL: Reports malaise, chills. Denies sweats, or fever. EYES: Denies visual changes, redness, or discharge. ENT: Reports rhinorrhea, congestion, sinus pain. Denies otalgia and sore throat. CARDIOVASCULAR: Denies chest pain, palpitations, or edema. RESPIRATORY: Reports productive cough. Denies dyspnea. GASTROINTESTINAL: Denies abdominal pain, nausea, vomiting, diarrhea SKIN: Denies rash or itching. MUSCULOSKELETAL: Denies myalgia. Reports rib pain with coughing NEUROLOGIC: Denies headache. All systems reviewed & are unremarkable except as noted in HPI and below PMFSH Past Medical History Medical History (Updated 02/06/23 @ 19:28 by Radha Mijares NP) Left lateral epicondylitis Patient request for diagnostic testing Radiculopathy, cervical region Tear of left rotator cuff Surgical History Surgical History (Updated 07/12/22 @ 11:08 by Sienna Melendez MA) H/O dilation and curettage History of breast biopsy Family History Family History Other Diabetes mellitus Family history of anemia Family history of arthritis Family history of malignant neoplasm of breast Family history of malignant neoplasm of breast in first degree relative Family history of malignant neoplasm of thyroid Family history of mental disorder Social History Social History (Updated 08/17/22 @ 15:03 by Lara Ramirez NP) Smoking packs per day: 1 Smoking cigarettes per day: 20.0 Years smoked: 8 Smoking pack-years: 8.00 Smoking status: Former smoker Tobacco type: cigarettes Smoking end date: 09/30/07 Alcohol intake: current Alcohol use details: A COUPLE/MONTH Substance use: never Substance use type: does not use Living arrangements: with family Gender identity (if verbalized by the patient): Female Spiritual care concerns: No Comments At time of signature, agree with nursing past medical, surgical, social and family history. There is no relevant family history pertinent to the presenting complaint Exam Narrative: GENERAL: Nontoxic-appearing and in no acute distress. HEAD: Normocephalic EYES: PERRLA, conjunctivae clear ENT: Nares clear, turbinates edematous and erythematous. Mucous membranes moist. TM pearly fowler with dull light reflex bilaterally; no tragal tenderness. Oropharynx not erythematous without lesions. Tonsils not enlarged and without exudate, no drooling, no hoarseness, no trismus, uvula midline. NECK: Supple. No lymphadenopathy CHEST: Clear to auscultation, breath sounds equal. No wheezing, rhonchi, rales, or stridor. No respiratory distress, speaks in full sentences. Cough noted HEART: Regular rate and rhythm. No murmur heard. SKIN: Warm, dry, no rash. NEURO: Alert and oriented x3. PSYCH: Normal mood and affect Course Course Emergency Course: Patient is aware of diagnosis, understands and agrees to treatment plan. Anticipatory
== END 2023-02-06 19:35 | disposition home or self-care (01) ==
PROVIDERS: Emergency Provider Nurse Practitioner; PCP Family Medicine
DX: J32.9 Chronic sinusitis, unspecified (principal); J40 Bronchitis, not specified as acute or chronic; Z87.891 Personal history of nicotine dependence
CPT/HCPCS: 71046; 99213; G0463

== ENCOUNTER → 2023-02-26 10:03 | Outpatient (CLI) | payer OTHER, SELFPAY ==
--- NOTE | ~2023-02-26 | CT_ITS ---
EXAMINATION: CT sinus wo con DATE: 02/26/2023 10:22 INDICATION: Recurrent URI/cough TECHNIQUE: Computed tomography (CT) of the paranasal sinuses was performed without intravenous contra st. The dose-length product (DLP) was 431.77 mGy-cm. Iterative reconstruction was used. COMPARISON: None FINDINGS: There is normal development and pneumatization of the paranasal sinuses. Aerated secretions in the right frontal sinus Small retention cyst/polyps in the right inferior maxillary sinus. Mild m ucosal thickening in the bilateral inferior medullary sinuses, the right frontal and to a lesser exte nt, left medial frontal as well as bilateral anterior and middle ethmoid air cells. The remaining aer ated spaces are clear. The bilateral ostiomeatal complexes are patent. Bilateral opacification of the frontal ethmoid drainage. Visualized soft tissues are unremarkable. IMPRESSION: 1. Aerated secretions in the right frontal sinus may reflect acute sinusitis in the appropriate clini soniya context. 2. Frontal ethmoid and maxillary mucoperiosteal disease. Reviewed, dictated and finalized at location K. IMPRESSION: 1. Aerated secretions in the right frontal sinus may reflect acute sinusitis in the appropriate clinical context. 2. Frontal ethmoid and maxillary mucoperiosteal disease.
== END ==
PROVIDERS: PCP Family Medicine; Visit Provider Family Medicine
DX: J06.9 Acute upper respiratory infection, unspecified (principal); R91.8 Other nonspecific abnormal finding of lung field
CPT/HCPCS: 70486

== ENCOUNTER 2023-02-26 10:22 | Outpatient (CLI) | payer OTHER, SELFPAY ==
[2023-02-26 14:26] LABS: Basophils Absolute Auto 0.1 K/mm3 (0.0-0.1); Basophils Percent Auto 1.3 % (0.2-1.2); Eosinophils Absolute Auto 0.2 K/mm3 (0-0.3); Eosinophils Percent Auto 2.4 % (0-4.4); Hematocrit 33.7 % (37.0-47.0); Immature Granulocyte Absolute 0.03 K/mm3 (0.00-0.031); Immature Granulocyte Percent A 0.4 % (0-0.5); Lymphocytes Percent Auto 24.4 % (18.3-44.2); Mean Corpuscular Hemoglobin 39.8 pg (26-34); Mean Corpuscular Volume 103.1 fl (80-100); Mean Platelet Volume 10.1 fl (7.4-10.4); Monocytes Absolute Auto 0.7 K/mm3 (0.1-0.6); Monocytes Percent Auto 9.5 % (2.6-8.5); Neutrophils Absolute Auto 4.3 K/mm3 (1.3-6.7); Platelet Count Result 382 k/mm3 (150-375); Red Blood Count 3.27 M/mm3 (4.2-5.4); Red Cell Distribution Width 11.7 % (11.5-14.5)
[2023-02-26 14:30] LABS: Alanine Aminotransferase 16 U/L (6-35); Albumin Level 4.3 g/dL (3.5-5.1); Alkaline Phosphatase 65 U/L (38-126); Anion Gap 7 mmol/L (8-16); Aspartate Amino Transferase 31 U/L (14-36); Bilirubin,Total 0.9 mg/dL (0.2-1.3); Blood Urea Nitrogen 12 mg/dL (7-17); Calcium 8.8 mg/dL (8.4-10.2); Carbon Dioxide 28 mmol/L (22-30); Chloride 102 mmol/L (98-107); Estimated Glomerular Filt Rate > 60; Glucose 87 mg/dL (65-110); Potassium 3.7 mmol/L (3.4-5.0); Sodium 137 mmol/L (137-145)
[2023-02-26 14:53] LABS: Thyroid Stimulating Hormone 0.573 uIU/mL (0.465-4.680)
[2023-02-26 15:31] LABS: Mean Corpuscular HGB Conc 38.6 g/dl (32-36)
[2023-02-26 15:33] LABS: Schistocytes None Seen (NORMAL); Spherocytes 1+ (NORMAL)
== END 2023-02-26 10:23 | disposition home or self-care (01) ==
LOC: ANHGOSHLAB 10:24
PROVIDERS: PCP Family Medicine; Visit Provider Family Medicine
DX: R53.83 Other fatigue (principal)
CPT/HCPCS: 36415; 80053; 82607; 82728; 84443; 85025

== ENCOUNTER 2023-03-11 15:06 | Outpatient (CLI) | payer OTHER, SELFPAY ==
--- NOTE | 2023-03-12 09:31 | WPDPFTINT ---
PFT Procedure Performed PFT Procedure Performed Spirometry with Pre/Post Bronchodilator Plethysmography (Lung Vol) Diffusing Cap (DLCO) Flow Vol Loop PFT Interpretation Lung volumes were measured with the body plethysmography method. The elevated lung volumes could be due to lower height used to derive the predicted values. Review of previous medical records showed that the patient's height was listed at 66 inches versus height of 65 inches used in this study. Spirometry showed normal expiratory flow rates and a normal FEV 1 to FVC ratio 76%. Following administration of a bronchodilator there was significant increase in the expiratory flow rates. Lung diffusion capacity is within the normal range at 90% predicted. Of note, the patient's effort was suboptimal as shown by the volume versus time tracing and the flow-volume loop. It is unclear whether the post bronchodilator response is related to true underlying obstructive airway disease versus better performance post bronchodilator administration. Clinical correlation advised. Impression: Suboptimal patient effort. Bronchodilator response of unclear significance. Lung diffusion capacity within the normal range.
== END 2023-03-11 15:07 | disposition home or self-care (01) ==
PROVIDERS: PCP Family Medicine; Visit Provider Family Medicine
DX: R05.8 Other specified cough (principal)
CPT/HCPCS: 94060; 94726; 94729

== ENCOUNTER → 2023-03-19 12:41 | Outpatient (CLI) | payer OTHER, SELFPAY ==
--- NOTE | ~2023-03-19 | XR_ITS ---
Clinical Indication: Chest pain PA and lateral views of the chest: Comparison: 02/06/2023 Findings: The lungs are clear, without evidence of focal consolidation or pleural effusion. Cardiome diastinal silhouette is within normal limits. Stable calcified lymph nodes at the left mediastinum. B ones and soft tissues are unremarkable. Impression: Clear lungs. Stable calcified lymph nodes. Reviewed, dictated and finalized at location . Impression: Clear lungs. Stable calcified lymph nodes.
== END ==
LOC: EXPBETH 12:44
PROVIDERS: PCP Physician Assistant; Visit Provider Physician Assistant
DX: R05.9 Cough, unspecified (principal); I89.8 Other specified noninfective disorders of lymphatic vessels and lymph nodes
CPT/HCPCS: 71046

== ENCOUNTER 2023-03-26 10:56 | Outpatient (CLI) | payer OTHER, SELFPAY ==
[2023-03-26 17:55] LABS: Alanine Aminotransferase 18 U/L (6-35); Albumin Level 4.5 g/dL (3.5-5.1); Alkaline Phosphatase 64 U/L (38-126); Anion Gap 4 mmol/L (8-16); Aspartate Amino Transferase 26 U/L (14-36); Blood Urea Nitrogen 11 mg/dL (7-17); Calcium 9.4 mg/dL (8.4-10.2); Carbon Dioxide 28 mmol/L (22-30); Chloride 106 mmol/L (98-107); Estimated Glomerular Filt Rate > 60; Glucose 102 mg/dL (65-110); Potassium 4.2 mmol/L (3.4-5.0); Sodium 138 mmol/L (137-145)
[2023-03-26 18:16] LABS: Basophils Absolute Auto 0.1 K/mm3 (0.0-0.1); Basophils Percent Auto 0.5 % (0.2-1.2); Eosinophils Absolute Auto 0.1 K/mm3 (0-0.3); Eosinophils Percent Auto 1.1 % (0-4.4); Hematocrit 37.2 % (37.0-47.0); Hemoglobin 12.6 g/dL (12.0-15.0); Immature Granulocyte Absolute 0.03 K/mm3 (0.00-0.031); Immature Granulocyte Percent A 0.3 % (0-0.5); Lymphocytes Absolute Auto 1.67 K/mm3 (0.9-3.2); Lymphocytes Percent Auto 15.2 % (18.3-44.2); Mean Corpuscular HGB Conc 33.9 g/dl (32-36); Mean Corpuscular Hemoglobin 33.7 pg (26-34); Mean Corpuscular Volume 99.5 fl (80-100); Mean Platelet Volume 10.7 fl (7.4-10.4); Monocytes Absolute Auto 0.8 K/mm3 (0.1-0.6); Monocytes Percent Auto 7.4 % (2.6-8.5); Neutrophils Absolute Auto 8.3 K/mm3 (1.3-6.7); Neutrophils Percent Auto 75.5 % (45.5-73.1); Platelet Count Result 293 k/mm3 (150-375); Red Blood Count 3.74 M/mm3 (4.2-5.4); Red Cell Distribution Width 11.9 % (11.5-14.5)
[2023-03-26 18:26] LABS: Thyroid Stimulating Hormone 0.749 uIU/mL (0.465-4.680)
[2023-03-29 20:25] LABS: Vitamin D 1,25 (OH)2 Total 44 pg/mL (18-72); Vitamin D2 1,25 (OH)2 <8 pg/mL; Vitamin D3 1,25 (OH)2 44 pg/mL
== END 2023-03-26 10:57 | disposition home or self-care (01) ==
LOC: ANHGOSHLAB 11:00
PROVIDERS: PCP Physician Assistant; Visit Provider Physician Assistant
DX: R53.83 Other fatigue (principal); E55.9 Vitamin D deficiency, unspecified
CPT/HCPCS: 36415; 80053; 82607; 82652; 82728; 84443; 85025

== ENCOUNTER 2023-04-16 08:36 | Outpatient (CLI) | payer OTHER, SELFPAY ==
[2023-04-16 20:57] LABS: Cholesterol 179 mg/dL (0-200); HDL Direct 67 mg/dL; Triglycerides 77 mg/dL (<150)
[2023-04-16 21:07] LABS: LDL Cholesterol Direct 77 mg/dL
[2023-04-17 02:12] LABS: HIV 1/2 Ab P24 Ag Result Negative (Negative)
[2023-04-17 12:44] LABS: Rapid Plasma Reagin Non-Reactive (NonReactive)
[2023-04-18 16:17] LABS: Homocysteine 18.4 umol/L (<10.4)
[2023-04-19 09:24] LABS: Immunoglobulin A 296 mg/dL (47-310); TTG IGA AB <1.0 U/mL (<15.0)
[2023-04-19 16:11] LABS: Triiodothryronine T3 Uptake 28 % (22-35)
== END 2023-04-16 08:37 | disposition home or self-care (01) ==
LOC: ANHGOSHLAB 08:38
PROVIDERS: PCP Family Medicine; Visit Provider Family Medicine
DX: R41.3 Other amnesia (principal); R53.83 Other fatigue; R79.89 Other specified abnormal findings of blood chemistry
CPT/HCPCS: 36415; 80061; 82784; 83090; 83921; 84436; 84479; 86364; 86592; 86703; G0432

== ENCOUNTER 2023-05-02 16:01 | Emergency (ER) | payer OTHER, SELFPAY ==
--- NOTE | ~2023-05-02 | XR_ITS ---
EXAMINATION: XR wrist LT min 3V DATE: 05/02/2023 16:25 INDICATION: Left wrist pain post fall TECHNIQUE: Posteroanterior, ulnar deviation, oblique, and lateral views of the left wrist were obtain ed. COMPARISON: Left hand radiographs dated 03/09/2022 FINDINGS: Alignment is normal. No fracture. Joint spaces are normal. Soft tissues are unremarkable. IMPRESSION: 1. Negative left wrist radiographs. Reviewed, dictated and finalized at location A.
[2023-05-02 16:13] VITALS: BP 107/78; PULSE 82; RESP 16; TEMP 36.8; O2SAT 100
--- NOTE | 2023-05-02 16:14 | ED.UPPEXIN ---
HPI - Extremity Injury (Upper) General Chief Complaint: Extremity Injury, Upper Stated Complaint: Left Wrist and Shoulder Injury Source: patient and RN notes reviewed History of Present Illness HPI narrative: 42 yo F presents to urgent care with complaints of left arm pain. Pt states this moring, she was running after a 2 year old at home when she slipped and fell onto her left anterior shoulder. Pt states she has some tingling in her left arm and left fingers. Pt reports left wrist, elbow, and shoulder pain. Pt denies any LOC or head injury. Pt has not had any medication for her symptoms. Related Data Home Medications Medication Instructions Recorded Confirmed No Home Medications 05/02/23 05/02/23 Allergies Allergy/AdvReac Type Severity Reaction Status Date / Time cephalexin Allergy Unknown stomach Verified 05/02/23 16:15 upset Gadolinium-Containing Allergy Unknown Unknown Verified 05/02/23 16:15 Contrast Medi azithromycin Allergy Swelling Verified 05/02/23 16:15 STEROID Allergy Severe Anaphylaxis Uncoded 03/27/23 10:27 Review of Systems Review of Systems: CONSTITUTIONAL: Denies fever, chills, or sweats. EYES: Denies visual changes, redness, or discharge. ENT: Denies otalgia and sore throat CARDIOVASCULAR: Denies chest pain, palpitations, or edema. RESPIRATORY: Denies cough or dyspnea. GASTROINTESTINAL: Denies abdominal pain, nausea, vomiting, or diarrhea. GENITOURINARY: Denies dysuria or hematuria. SKIN: Denies rash or itching. MUSCULOSKELETAL: Left wrist, elbow, and posterior shoulder pain. Left trapezius muscle tenderness, left mid FA, and left upper arm tenderness. NEUROLOGIC: some numbness and tingling in left arm and hand Pertinent positives per HPI. FOR[facility]LY [facility], [facility] Past Medical History Medical History Endocervical polyp 3.18.21 Path: Benign endocervical tissue showing acute and chronic inflammation, with features of endocervical polyp. Left lateral epicondylitis Patient request for diagnostic testing Radiculopathy, cervical region Tear of left rotator cuff Tendonitis of wrist, left Surgical History Surgical History H/O dilation and curettage History of breast biopsy Family History Family History Other Diabetes mellitus Family history of anemia Family history of arthritis Family history of malignant neoplasm of breast Family history of malignant neoplasm of breast in first degree relative Family history of malignant neoplasm of thyroid Family history of mental disorder Social History Social History Smoking packs per day: 1 Smoking cigarettes per day: 20.0 Years smoked: 8 Smoking pack-years: 8.00 Smoking status: Former smoker Tobacco type: cigarettes Smoking end date: 09/30/07 Alcohol intake: current Alcohol use details: A COUPLE/MONTH Substance use: never Substance use type: does not use Living arrangements: with family Gender identity (if verbalized by the patient): Female Spiritual care concerns: No Comments At the time of my signature, I reviewed and agree with the nursing past medical, surgical, social, and family history. There is no relevant family history pertinent to the patient complaint. Exam Narrative: GENERAL: This is a well-nourished, well-developed patient, in no apparent distress. HEAD: normocephalic, atraumatic. EYES: Sclera clear/white. Vision is grossly intact. EARS: External ears normal, auditory canals clear and without drainage. Hearing grossly intact. NOSE: External nose normal with no obvious nasal discharge, nares without redness, no rhinorrhea. THROAT: Mucous membranes moist, posterior pharynx clear. NECK: Neck supple, non-tender without lymphadenopathy, masses or thyromegaly. CARDIO
== END 2023-05-02 16:38 | disposition home or self-care (01) ==
PROVIDERS: Emergency Provider Nurse Practitioner Family; PCP Family Medicine
DX: S66.912A Strain of unspecified muscle, fascia and tendon at wrist and hand level, left hand, initial encounter (principal); S63.502A Unspecified sprain of left wrist, initial encounter; W01.0XXA Fall on same level from slipping, tripping and stumbling without subsequent striking against object, initial encounter; Z87.891 Personal history of nicotine dependence
CPT/HCPCS: 73110; 99213; G0463

== ENCOUNTER 2023-05-07 07:29 | Outpatient (CLI) | payer OTHER, SELFPAY ==
--- NOTE | ~2023-05-07 | MR_ITS ---
EXAMINATION: MR brain/brain stem wo con DATE: 05/07/2023 08:15 INDICATION: Other amnesia. Frontal headache. TECHNIQUE: Magnetic resonance imaging (MRI) of the brain and brainstem was performed without intraven ous contrast. COMPARISON: None. FINDINGS: There is no intracranial hemorrhage, acute infarction, or abnormal intracranial mass lesion . The ventricles are normal in size. The paranasal sinuses are clear. The mastoid air cells are niki l. The orbits are normal. IMPRESSION: 1. Normal brain. Reviewed, dictated and finalized at location A. IMPRESSION: 1. Normal brain.
== END 2023-05-07 07:30 ==
LOC: MICIMG 07:30
PROVIDERS: PCP Family Medicine; Visit Provider Family Medicine
DX: R41.3 Other amnesia (principal)
CPT/HCPCS: 70551

== ENCOUNTER 2023-05-07 10:18 | Outpatient (CLI) | payer OTHER, SELFPAY | END 2023-05-07 10:19 | disposition home or self-care (01) | PROVIDERS: PCP Family Medicine; Visit Provider Physician Assistant | DX: R05.8 Other specified cough (principal); Z77.120 Contact with and (suspected) exposure to mold (toxic) | CPT/HCPCS: 36415; 86606 ==

== ENCOUNTER 2023-06-11 08:08 | Outpatient (CLI) | payer OTHER, SELFPAY ==
--- NOTE | ~2023-06-11 | CT_ITS ---
CT Scan of the Chest without Contrast: Clinical Indication: Shortness of breath Technique: Contiguous sections were acquired throughout the chest without intravenous contrast. Dose reduction technique was used on this scan by utilizing automated exposure control and iterative recon struction technique. The dose-length product (DLP) was 139.51 mGy-cm. Findings: There is no evidence of any significant mediastinal, hilar or axillary lymphadenopathy. Calcified med iastinal and left hilar lymph nodes are present. The mediastinal soft tissues and vascular structures otherwise appear normal. There is no evidence of pleural or pericardial effusion. There is minimal biapical scarring. Lungs are otherwise clear. Images through the upper abdomen reveal no abnormalities. Impression: Minimal biapical scarring, otherwise clear lungs. Evidence of prior granulomatous disease. Reviewed, dictated and finalized at [facility]. Impression: Minimal biapical scarring, otherwise clear lungs. Evidence of prior granulomatous disease.
--- NOTE | 2023-06-11 14:26 | WPDPFTINT ---
PFT Procedure Performed PFT Procedure Performed Spirometry with Pre/Post Bronchodilator Plethysmography (Lung Vol) Diffusing Cap (DLCO) Flow Vol Loop PFT Interpretation Lung volumes were measured with the body plethysmography method. Lung volumes are elevated across the board. Etiology of elevated lung volumes not apparent. There is possibility of using lower patient height to derive predicted values. Spirometry showed normal expiratory flow rates and a normal FEV1 to FVC ratio of 88%. Following administration of a bronchodilator there was no significant increase in expiratory flow rates. Flow volume loop is consistent with a suboptimal patient effort. Suboptimal patient effort is also seen on the volume-time tracing. Lung diffusion capacity is within the normal range at 89% predicted. In comparison to previous study in February of 2023 there has been essentially no change in lung volume, spirometric or lung diffusion capacity measurements. Impression: Spirometry within normal range. Elevated lung volumes of unclear significance. Lung diffusion capacity within the normal range.
--- NOTE | 2023-06-11 14:40 | WPDSIXMINUTE ---
Six Minute Walk Procedure Procedure Performed Pulmonary Stress Test (6 min walk) Six Minute Walk Six Minute Walk: This 6 minute walk test was carried out with the patient breathing ambient air. The baseline pre-walk oxyhemoglobin saturation was 98 % patient. The patient walked 396 m with no stops during testing. During the walk the oxyhemoglobin saturation remained in the range of 97% to 99%. Impression: No evidence of oxyhemoglobin desaturation on this testing.
== END 2023-06-11 08:09 | disposition home or self-care (01) ==
PROVIDERS: PCP Family Medicine; Visit Provider Physician Assistant
DX: R06.02 Shortness of breath (principal); R05.8 Other specified cough; Z77.120 Contact with and (suspected) exposure to mold (toxic)
CPT/HCPCS: 71250; 94060; 94618; 94726; 94729

== ENCOUNTER 2023-07-09 10:09 | Emergency (ER) | payer OTHER, SELFPAY ==
[2023-07-09 10:24] VITALS: BP 118/79; PULSE 95; RESP 16; TEMP 36.7; O2SAT 97
--- NOTE | 2023-07-09 10:39 | ED.GENADULT ---
HPI - General Adult General Chief complaint: Upper Respiratory Infection Stated complaint: Body Ache/Headache/Vomiting Source: patient Mode of arrival: ambulatory Limitations: no limitations History of Present Illness HPI narrative: Patient presents for evaluation of sick symptoms for last 2 days. Symptoms include fever, nausea, vomiting, mild sore throat, generalized body aches, diarrhea, headache and fatigue. Her daughter is currently sick and has a cough. 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 She is not taking any medication to assist with her symptoms. Related Data Home Medications Medication Instructions Recorded Confirmed No Home Medications 05/02/23 05/30/23 Allergies Allergy/AdvReac Type Severity Reaction Status Date / Time cephalexin Allergy Unknown stomach Verified 07/09/23 10:35 upset Gadolinium-Containing Allergy Unknown Unknown Verified 07/09/23 10:35 Contrast Medi azithromycin Allergy Swelling Verified 07/09/23 10:35 STEROID Allergy Severe Anaphylaxis Uncoded 07/09/23 10:35 Review of Systems Review of Systems: CONSTITUTIONAL: Reports fever and fatigue. Denies chills, or sweats. EYES: Denies visual changes, redness, or discharge. ENT: Reports sore throat. Denies rhinorrhea, congestion, or otalgia. CARDIOVASCULAR: Denies chest pain, palpitations, or edema. RESPIRATORY: Denies cough or dyspnea. GASTROINTESTINAL: Reports nausea, vomiting, diarrhea. Denies abdominal pain GENITOURINARY: Denies dysuria or hematuria. SKIN: Denies rash or itching. MUSCULOSKELETAL: Reports generalized body aches NEUROLOGIC: Reports headache. Denies numbness, dizziness, or weakness. PSYCHIATRIC: Denies anxiety or depression. [facility] Past Medical History Medical History Endocervical polyp 3.18.21 Path: Benign endocervical tissue showing acute and chronic inflammation, with features of endocervical polyp. Left lateral epicondylitis Patient request for diagnostic testing Radiculopathy, cervical region Tear of left rotator cuff Tendonitis of wrist, left Surgical History Surgical History H/O dilation and curettage History of breast biopsy Family History Family History Other Diabetes mellitus Family history of anemia Family history of arthritis Family history of malignant neoplasm of breast Family history of malignant neoplasm of breast in first degree relative Family history of malignant neoplasm of thyroid Family history of mental disorder Social History Social History Smoking packs per day: 1 Smoking cigarettes per day: 20.0 Years smoked: 8 Smoking pack-years: 8.00 Smoking status: Former smoker Tobacco type: cigarettes Smoking end date: 09/30/07 Alcohol intake: current Alcohol use details: A COUPLE/MONTH Substance use: never Substance use type: does not use Lack of Transportation: No Lack of Food: Never True Current Housing: I Have Housing Concerned About Future Housing: No Difficulty Paying Gas/Electric Bills: No Difficulty Paying for Meds: No Currently Unemployed: No Education: Bachelor's Degree Difficulty w/ Childcare or Family Care: No Living arrangements: with family Gender identity (if verbalized by the patient): Female Spiritual care concerns: No Exam Narrative: GENERAL: Well-appearing, well-nourished, and in no acute distress. HEAD: Normocephalic, atraumatic. EYES: PERRLA and EOMI. ENT: Nares clear, no rhinorrhea or epistaxis. Mucous membranes moist. Oropharynx without tonsillar hypertrophy exudate or other lesions. Bilateral TMs pearly fowler nonbulging NECK: Supple. No adenopathy or masses. No carotid bruits or JVD CHEST: Clear to auscultation. No respir
== END 2023-07-09 11:20 | disposition home or self-care (01) ==
PROVIDERS: Emergency Provider Nurse Practitioner; PCP Family Medicine
DX: B34.9 Viral infection, unspecified (principal); Z20.822 Contact with and (suspected) exposure to COVID-19; Z87.891 Personal history of nicotine dependence
CPT/HCPCS: 87426; 87804; 99213; C9803; G0463

== ENCOUNTER 2023-08-23 11:03 | Emergency (ER) | payer OTHER, SELFPAY ==
[2023-08-23 11:30] VITALS: BP 120/80; PULSE 100; RESP 20; TEMP 36.8; O2SAT 99
--- NOTE | 2023-08-23 11:57 | ED.URI ---
HPI - URI/Sore Throat General Chief Complaint: Upper Respiratory Infection Stated Complaint: Congestion/fever Time Seen by Provider: 08/23/23 11:57 Source: patient, RN notes reviewed and old records reviewed Mode of arrival: ambulatory Limitations: no limitations History of Present Illness HPI Narrative: 42 year old female who presents to express care complaints of feeling ill since Saturday with raspy voice, headache, ears popping, sinus congestion, body aches,chills, cough and some fevers. Patient reports that she has taken naural supplements and flonase,but has not taken any Tylenol or Ibuprofen for her symptoms. Patient reports hat she has not been COVID vaccinated or had flu shot. Patient states history of immune system deficiency.and fivbromyalgia. Patient reports no shortness of breath or any noted whezing. MD elicited complaint: fever, cough, rhinorrhea, nasal congestion and other (body aches) Pertinent past history: other (reports history of immune system deficiency, bronchitis,exposure to black mold, fibromyalgia) Onset (ago): day(s) (3) Pain scale (0-10): 5 Able to tolerate fluids by mouth: Yes Treatments prior to arrival: other (Flonase, natural supplements) Related Data Allergies Allergy/AdvReac Type Severity Reaction Status Date / Time cephalexin Allergy Unknown stomach Verified 08/23/23 11:06 upset Gadolinium-Containing Allergy Unknown Unknown Verified 08/23/23 11:06 Contrast Medi azithromycin Allergy Swelling Verified 08/23/23 11:06 STEROID Allergy Severe Anaphylaxis Uncoded 08/23/23 11:06 Review of Systems Review of Systems: CONSTITUTIONAL:Reports malaise, chills, sweats, or fever. EYES: Denies visual changes, redness, or discharge. ENT: Reports rhinorrhea, congestion, sinus pain,no otalgia and no sore throat. CARDIOVASCULAR: Denies chest pain, palpitations, or edema. RESPIRATORY: Reports cough.? Denies dyspnea. GASTROINTESTINAL: Denies abdominal pain, nausea, vomiting, diarrhea SKIN: Denies rash or itching. MUSCULOSKELETAL: Reports myalgia. NEUROLOGIC: Reports headache. All systems reviewed & are unremarkable except as noted in HPI and below PMFSH Past Medical History Medical History Endocervical polyp 3.18.21 Path: Benign endocervical tissue showing acute and chronic inflammation, with features of endocervical polyp. Left lateral epicondylitis Patient request for diagnostic testing Radiculopathy, cervical region Tear of left rotator cuff Tendonitis of wrist, left Surgical History Surgical History H/O dilation and curettage History of breast biopsy Family History Family History Other Diabetes mellitus Family history of anemia Family history of arthritis Family history of malignant neoplasm of breast Family history of malignant neoplasm of breast in first degree relative Family history of malignant neoplasm of thyroid Family history of mental disorder Social History Social History Smoking packs per day: 1 Smoking cigarettes per day: 20.0 Years smoked: 8 Smoking pack-years: 8.00 Smoking status: Former smoker Tobacco type: cigarettes Smoking end date: 09/30/07 Alcohol intake: current Alcohol use details: A COUPLE/MONTH Substance use: never Substance use type: does not use Lack of Transportation: No Lack of Food: Never True Current Housing: I Have Housing Concerned About Future Housing: No Difficulty Paying Gas/Electric Bills: No Difficulty Paying for Meds: No Currently Unemployed: No Education: Bachelor's Degree Difficulty w/ Childcare or Family Care: No Living arrangements: with family Gender identity (if verbalized by the patient): Female Spiritual care concerns: No Comments At [facility]
== END 2023-08-23 12:15 | disposition home or self-care (01) ==
PROVIDERS: Emergency Provider Registered Nurse; PCP Family Medicine
DX: U07.1 COVID-19 (principal); M79.7 Fibromyalgia; D84.9 Immunodeficiency, unspecified; Z87.891 Personal history of nicotine dependence
CPT/HCPCS: 87081; 87426; 87804; 87880; 99213; C9803; G0463

== ENCOUNTER 2024-07-30 13:14 | Outpatient (CLI) | payer OTHER, SELFPAY ==
[2024-08-04 17:48] LABS: NIL 0.36 IU/mL; Quantiferon TB Plus, 1T NEGATIVE (NEGATIVE); TB1-NIL 0.17 IU/mL; TB2-NIL 0.24 IU/mL
== END 2024-07-30 13:15 | disposition home or self-care (01) ==
LOC: ANHGOSHLAB 13:19
PROVIDERS: PCP Family Medicine; Visit Provider Family Medicine
DX: Z11.1 Encounter for screening for respiratory tuberculosis (principal)
CPT/HCPCS: 36415; 86480

== ENCOUNTER 2024-08-01 10:20 | Outpatient (CLI) | payer OTHER, SELFPAY ==
[2024-08-01 10:36] LABS: Basophils Absolute Auto 0.1 K/mm3 (0.0-0.1); Basophils Percent Auto 1.5 % (0.2-1.2); Eosinophils Percent Auto 0.5 % (0-4.4); Hematocrit 39.7 % (37.0-47.0); Hemoglobin 13.7 g/dL (12.0-15.0); Immature Granulocyte Absolute 0.02 K/mm3 (0.00-0.031); Immature Granulocyte Percent A 0.3 % (0-0.5); Lymphocytes Absolute Auto 1.22 K/mm3 (0.9-3.2); Mean Corpuscular HGB Conc 34.5 g/dl (32-36); Mean Corpuscular Hemoglobin 33.7 pg (26-34); Mean Corpuscular Volume 97.5 fl (80-100); Mean Platelet Volume 9.6 fl (7.4-10.4); Monocytes Absolute Auto 0.7 K/mm3 (0.1-0.6); Monocytes Percent Auto 11.9 % (2.6-8.5); Neutrophils Absolute Auto 3.8 K/mm3 (1.3-6.7); Neutrophils Percent Auto 64.8 % (45.5-73.1); Platelet Count Result 230 k/mm3 (150-375); Red Blood Count 4.07 M/mm3 (4.2-5.4); Red Cell Distribution Width 11.5 % (11.5-14.5); White Blood Count 5.8 K/mm3 (4.5-10.0)
[2024-08-01 10:52] LABS: Alanine Aminotransferase 16 U/L (6-35); Albumin Level 4.8 g/dL (3.5-5.1); Alkaline Phosphatase 64 U/L (38-126); Anion Gap 6 mmol/L (4-12); Aspartate Amino Transferase 24 U/L (14-36); Bilirubin,Total 1.4 mg/dL (0.2-1.3); Blood Urea Nitrogen 10 mg/dL (7-17); Calcium 9.6 mg/dL (8.4-10.2); Carbon Dioxide 29 mmol/L (22-30); Chloride 102 mmol/L (98-107); Cholesterol 184 mg/dL (0-200); Estimated Glomerular Filt Rate > 60; Glucose 97 mg/dL (65-110); HDL Direct 69 mg/dL; Potassium 3.9 mmol/L (3.4-5.0); Sodium 137 mmol/L (137-145); Triglycerides 93 mg/dL (<150)
[2024-08-01 10:58] LABS: LDL Cholesterol Direct 78 mg/dL
[2024-08-01 11:05] LABS: CRP < 0.5 mg/dL (<1.0)
== END 2024-08-01 10:21 | disposition home or self-care (01) ==
LOC: ANHLAB 10:21
PROVIDERS: PCP Family Medicine; Visit Provider Family Medicine
DX: E55.9 Vitamin D deficiency, unspecified (principal); Z00.00 Encounter for general adult medical examination without abnormal findings
CPT/HCPCS: 36415; 80053; 80061; 82306; 85025; 86140

== ENCOUNTER 2025-03-08 18:23 | Emergency (ER) | payer OTHER, BC, SELFPAY ==
--- NOTE | ~2025-03-08 | XR_ITS ---
EXAMINATION: [id number] Exam Date/Time: 03/08/2025 18:36 CDT HISTORY: fall Comparison: None available. RESULT: Lines, tubes, and devices: None. Lungs and pleura: Biapical pleural scarring. Cardiothymic silhouette: Stable. Granulomatous calcifications Other: No acute osseous or upper abdominal finding. IMPRESSION: No acute cardiopulmonary process. No acute osseous finding in the right ribs. Reviewed, dictated and finalized at location K.
--- OUTSIDE RECORDS SUMMARY | 2025-03-08 18:26 | XMS_ITS | Clinical Summary ---
Author Organization [facility] Address [address] [place] [address] Phone Care Team Providers Care Folded Towel Machine Operator Name Role Phone Cinthia Hobson MD Primary Care Provider [phone] Medications No known medications Social History Tobacco Use Types Packs/Day Years Used Date Smoking Tobacco: Never Assessed Comments No Sex and Gender Information Value Date Recorded Sex Assigned at Not on file Legal Sex Female 9:54 PM CDT Gender Identity Not on file Sexual Orientation Not on file Last Filed Vital Signs Vital Sign Reading Time Taken Comments Blood Pressure 121/87 09/22/2023 12:35 PM CAMERA REPAIRER Pulse 79 09/22/2023 12:35 PM CAMERA REPAIRER Temperature 36.8 C (98.2 F) 09/22/2023 12:35 PM CAMERA REPAIRER Respiratory Rate 17 09/22/2023 12:35 PM CAMERA REPAIRER Oxygen Saturation 99% 09/22/2023 12:35 PM CAMERA REPAIRER Inhaled Oxygen Concentration - - Weight 49.9 kg (110 lb) 09/22/2023 10:58 AM CAMERA REPAIRER Height 165.1 cm (5' 5) 09/22/2023 10:58 AM CAMERA REPAIRER Body Mass Index 18.3 09/22/2023 10:58 AM CAMERA REPAIRER Plan of Treatment Health Maintenance Due Date Last Done Comments TdaP Immunization 1978 Hepatitis B Immunization (1 of 3 - 19+ 3-dose series) 1997 Pap Smear 1999 Cervical Cancer Screening (CCS) 2008 HPV/Cotest 2008 Cologuard 2023 Colonoscopy 2023 Colorectal Cancer Screening 2023 Immunochemical Fecal Occult Blood 2023 SARS-COV-2 Immunization () 05/31/2024 Mammogram 06/18/2024 06/18/2023, 07/02/2017, 04/21/2015, Additional history exists Influenza Immunization (Season Ended) 2025 Respiratory Syncytial Virus (RSV) Immunization (Adult) (1 - 1-dose 75+ series) 2053 Discussion re Starting/Frequency of Mammograms Completed 06/18/2023, 04/04/2017, 04/21/2015, Additional history exists Hepatitis C Virus (HCV) Screening Completed 06/05/2024 Human Papillomavirus (HPV) Immunization Aged Out No longer eligible based on patient's age to complete this topic Meningococcal Immunization (ACWY) Aged Out No longer eligible based on patient's age to complete this topic Pneumococcal Immunization Combined Aged Out No longer eligible based on patient's age to complete this topic Rotavirus Immunization Aged Out No lo nger eligible based on patient's age to complete this topic Procedures Procedure Name Priority Date/Time Associated Diagnosis Comments HEPATITIS C ANTIBODY Today 06/05/2024 7:08 AM CDT Routine general medical examination at a health care facility (Adult) Avitaminosis D Screening examination for poliomyelitis from Last 3 Months or Most Recently Relevant to Health Maintenance Results * HEPATITIS C ANTIBODY (06/05/2024 7:08 AM CDT) hepatitis C antibody 0.06 <1 S/CO 06/05/2024 3:30 PM CDT [facility] Comment: Signal/Cutoff ratio < 0.79 is Nondetected Signal/Cutoff ratio 0.80-0.99 is Grayzone Signal/Cutoff ratio > 0.99 is Detected Supplemental assays are recommended if signal/cutoff ratio is >/=1.00. Signal/cutoff ratio result >/= 5.00 is 97% predictive of positivity for recombinant immunoblot assay (RIBA) and will be reported to the [place] Department of Public [facility] as required. Blood Venipuncture / Unknown 06/05/2024 7:08 AM CDT 06/05/2024 7:57 AM CDT us Cinthia Hobson MD CHEMISTRY ORDERABLES Final Result [facility] [address] [place] [address], from Last 3 Months or Most Recently Relevant to Health Maintenance Insurance [facility] Care Teams Folded Towel Machine Operator Relationship Specialty Start Date End Date Cinthia Hobson MD [address] [place] [address] PCP - General Family Medicine 05/25/23
--- OUTSIDE RECORDS SUMMARY | 2025-03-08 18:26 | XMS_ITS | Clinical Summary ---
Author Organization [facility] Address [address] [address] Care Team Providers Care Health Teacher Name Role Phone Jaymie Jacobs MD Unavailable [phone] Marjan Scales MD Unavailable [phone] Cinthia Hobson MD Primary Care Provider [phone] Source Comments [facility],non-owned Affiliates and Associated Physician Practices is amultiple site organization consisting of ambulatory clinics and hospital sitesin [place], [place], [place] and [place]. This disclosure is being madepursuant to the Care Everywhere program and may not contain all information available regarding this patient. Last updated 18.[facility] Allergies Active Allergy Reactions Criticality Noted Date Comments Cephalexin Other 09/16/2012 Contrast-Gadolinium Agents For Mri Other 10/15/2017 Contrast-Iodinated Agents For Ct/Other Nausea and/or Vomiting,Dizziness 10/14/2012 Medications * Be aware that medications may not be up to date on this document. Alwaysverify current medications with the patient. No known medications Active Problems Problem Noted Date Diagnosed Date Family history of breast cancer in first degree relative 02/28/2018 Breast cancer screening, high risk patient 02/28 Breast cancer screening, high risk patient 09/02 Breast pain 09/02/2012 Family History Medical History Relation Name Comments Breast Cancer at or under age 50 Mother when she was 39 of breast cancer Cancer - Breast Mother Relation Name Status Comments Mother Social History Tobacco Use Types Packs/Day Years Used Date Smoking Tobacco: Former Cigarettes 0 10/25/1993 - 10/25/2000 Smokeless Tobacco: Never Alcohol Use Standard Drinks/Week Comments Yes 0 (1 standard drink = 0.6 oz pur e alcohol) Comments No Sex and Gender Information Value Date Recorded Sex Assigned at Not on file Legal Sex Female 1:49 PM FORGE OPERATOR HELPER Gender Identity Not on file Sexual Orientation Not on file Last Filed Vital Signs Vital Sign Reading Time Taken Comments Blood Pressure 112/68 06/18/2023 9:12 AM CDT Pulse 48 06/18/2023 9:12 AM CDT Temperature 36.6 C (97.8 F) 09/05/2021 2:21 PM FORGE OPERATOR HELPER Respiratory Rate 18 06/18/2023 9:12 AM CDT Oxygen Saturation 98% 06/18/2023 9:12 AM CDT Inhaled Oxygen Concentration - - Weight 54.4 kg (120 lb) 06/18/2023 9:12 AM CDT Height 166.4 cm (5' 5.51) 06/18/2023 9:12 AM CD T Body Mass Index 19.66 06/18/2023 9:12 AM CDT Plan of Treatment Health Maintenance Due Date Last Done Comments COLOGUARD (AGES 45-75) - COLON CA SCREENING 1978 COLON MONITORING 1978 COLONOSCOPY - COLON CA SCREENING 1978 CT COLONOGRAPHY - COLON CA SCREENING 1978 Colorectal Cancer Screening 1978 FIT - COLON CA SCREENING 1978 FLEX SIG - COLON CA SCREENING 1978 PAP SMEAR 1978 HIV SCREENING 1993 HEPATITIS C SCREENING 10/01/1996 DTAP/TDAP/TD VACCINES (1 - Tdap) 1997 HEPATITIS B VACCINE (1 of 3 - 19+ 3-dose series) 1997 COVID-19 VACCINE (1 - 2023- season) 2024 DEPRESSION SCREENING 09/30/2024 INFLUENZA VACCINE (Season Ended) 2025 MAMMOGRAM 06/18/2025 06/18/2023, 04/2 , 09/09/2018, Additional history exists LIPID TESTING 05/25/2028 05/25/2023 ZOSTER VACCINE (1 of 2) 2028 HIB VACCINE Aged Out No longer eligi ble based on patient's age to complete this topic HPV VACCINE Aged Out No longer eligi ble based on patient's age to complete this topic MENINGOCOCCAL (Group B) VACCINE SHARED DECISION-MAKING Aged Out No longer eligible based on patient's age to complete this topic MENINGOCOCCAL GROUPS A/C/Y/W VACCINE Aged Out No longer eligible based on patient's age to complete this topic PNEUMOCOCCAL VACCINE Aged Out No long er eligible based on patient's age to complete this topic Procedures Procedure Name Priority Date/Time Associated Diagnosis Comments MAMMO BILAT SCREENING W DEJON Routine 06/18/2023 9:05 AM CDT Breast cancer screening, high risk patient Family history of breast cancer in first degree relative Visit for screening mammogram from Last 3 Months or Most Recently Relevant to Health Maintenance Results * MAMMO BILAT SCREENING W DEJON (06/18/2023 9:05 AM CDT) Anatomical Region Laterality Modality Breast Bilateral Mammography 06/18/2023 9:08 AM CDT Impressions 06/18/2023 9:11 AM CDT : No mammographic evidence of malignancy in either breast. ASSESSMENT: BIRADS Category 1: Negative mammogram. RECOMMENDATION: 1. Bilateral screening mammogram in one year. 2. Your patient has extremely dense breast tissue; bilateral whole breast ultrasound could be considered as a supplemental screening examination. Thank you for allowing us to participate in the care of your patient. [facility] Care utilizes [employer] as a reminder system to notify patients of their next recommended mammogram. > Interpreting Provider: Nohemi David MD on 06/18/2023 9:11 AM Narrative 06/18/2023 9:11 AM CDT EXAMINATION: Digital screening mammogram. Low-dose full-field digital breast tomosynthesis examination was performed with synthetic 2D images. Computer assisted detection was utilized. DATE: 06/18/2023 9:06 AM PRIOR: 01/17/2021 and prior mammograms dating back to 2018. BREAST PARENCHYMAL DENSITY: The breasts are extremely dense, which lowers the sensitivity of mammography. FINDINGS: No suspicious masses, areas of architectural distortion or microcalcifications are evident on synthetic 2D mammogram or tomosynthesis images. There has been no significant interval change since the prior examination. us Jaymie Jacobs MD MAMMO ORDERABLES Final Resu lt from Last 3 Months or Most Recently Relevant to Health Maintenance Insurance [facility] Member Subscriber Plan / Payer (Ef fective 2025-Present) Name:Mireya Rogers Member ID:Not on file Relation to Subscriber:Spouse Name:MARIALUISA MENDEZ Date of :1976 (Home) Address: [address] [place] [address] Payer ID:[id number] (NAIC) Type:HMO Address: [address] CARE Member Subscriber Plan / Payer (Ef fective 2025-Present) Name:Mireya Rogers Relation to Subscriber:Self Name:Mireya Rogers Payer ID:[id number] (NAIC) Type:[employer] Address: [place] [id number] [facility] Care Teams Health Teacher Relationship Specialty Start Date End Date iCnthia Hobson MD [address] [place] [address] PCP - General 05/15/18 Jaymie Jacobs MD [address] [place] [address] General Surgery 03/25/12 Marjan Scales MD [address] [place] [address] Obstetrics and Gynecology 05/06/17
--- NOTE | 2025-03-08 18:31 | ED.BACK ---
HPI - Back Pain/Injury General Chief Complaint: Back Pain/Injury Stated Complaint: Right Side and Back Pain/Injury Time Seen by Provider: 03/08/25 18:33 Source: patient and RN notes reviewed Mode of arrival: ambulatory Limitations: no limitations History of Present Illness HPI Narrative: 44-year-old female presents with concern for fall. Reports she was crouching on the ground in front of a baby gate when her 50 lb dog jumped on the gate causing it to fall onto her back and causing her to topple over. He reports right rib pain it started right away. Reports over the last hour her upper back and neck have become painful. She reports pain at rest in denies any exacerbating factors. She denies weakness in the extremity, loss of bowel or bladder function, perianal anesthesia. Denies any bruising or open skin. She denies shortness of breath. She has not taken any medication for her symptoms. Reports the pain is a stinging sensation MD elicited complaint: back pain Related Data Home Medications ?Medication ?Instructions ?Recorded ?Confirmed ?Last Taken ?Type No Home Medications 06/03/24 06/03/24 Unknown History Allergies Allergy/AdvReac Type Severity Reaction Status Date / Time cephalexin Allergy Unknown stomach Verified 03/08/25 18:35 upset Gadolinium-Containing Allergy Unknown Unknown Verified 03/08/25 18:35 Contrast Medi azithromycin Allergy Swelling Verified 03/08/25 18:35 STEROID Allergy Severe Anaphylaxis Uncoded 03/08/25 18:35 Review of Systems Review of Systems: CONSTITUTIONAL: Denies malaise, chills, sweats, or fever. CARDIOVASCULAR: Denies chest pain, palpitations, or edema. RESPIRATORY: Denies cough or dyspnea. GASTROINTESTINAL: Denies abdominal pain GENITOURINARY: Denies dysuria, hematuria, frequency, loss of bladder function. SKIN: Denies bruising, open skin MUSCULOSKELETAL: Reports mid back pain, right rib pain, posterior neck pain NEUROLOGIC: Denies numbness, weakness, or headache. All systems reviewed & are unremarkable except as noted in HPI and below PMFSH Past Medical History Medical History Endocervical polyp 3.18. Path: Benign endocervical tissue showing acute and chronic inflammation, with features of endocervical polyp. Left lateral epicondylitis Patient request for diagnostic testing Radiculopathy, cervical region Tear of left rotator cuff Tendonitis of wrist, left Surgical History Surgical History H/O dilation and curettage History of breast biopsy Family History Family History Other Diabetes mellitus Family history of anemia Family history of arthritis Family history of malignant neoplasm of breast Family history of malignant neoplasm of breast in first degree relative Family history of malignant neoplasm of thyroid Family history of mental disorder Social History Social History (Updated 06/03/24 @ 11:24 by Lexii Allison MA) Smoking packs per day: 1 Smoking cigarettes per day: 20.0 Years smoked: 8 Smoking pack-years: 8.00 Smoking status: Former smoker Tobacco type: cigarettes Smoking end date: 09/30/07 Alcohol intake: current Alcohol use details: rarely Substance use: never Substance use type: does not use Do You Feel Safe in your Home?: Yes Lack of Transportation: No Lack of Food: Never True Current Housing: I Have Housing Concerned About Future Housing: No Difficulty Paying Gas/Electric Bills: No Difficulty Paying for Meds: No Currently Unemployed: No Education: Bachelor's Degree Difficulty w/ Childcare or Family Care: No Living arrangements: with family Gender identity (if verbalized by the patient): Female Spiritual care concerns: No Comments At time of signature, agree with nursing past medical, surgical, social and family history. There is no relevant family history pertinent to the presenting complaint Exam Narrative: GENERAL: Well-appearing, well-nourished, and in no acute distress. HEAD: Normocephalic, atraumatic. EYES: PERRLA and EOMI. NECK: Supple. No lymphadenopathy. CHEST: Clear to auscultation. No respiratory distress. HEART: Regular rate and rhythm. Distal pulses palpable and equal, cap refill <3 seconds ABDOMEN: Soft, nontender, nondistended, normal active bowel sounds, no palpable or pulsatile masses. No CVA tenderness MUSCULOSKELETAL: Normal range of motion and strength in all extremities; 5/5 strength with hip flexion and extension, dorsiflexion and extension, knee flexion and extension, plantar flexion and extension. Normal sensation in dermatomal distributions with sensitivity to light touch and pain. General back, neck, posterior right rib cage tenderness without point tenderness. Transfers from sitting to standing. SKIN: Warm, dry, no rash. No ecchymosis, erythema, open wounds to back, chest, neck. NEURO: No focal deficits. Alert and oriented x3. Normal gait. PSYCH: Normal mood and affect Course Course Emergency Course: Patient is aware of diagnosis, understands and agrees to treatment plan. Anticipatory guidance given. Patient agrees to follow-up as directed and is aware of reasons to seek care at the emergency department. Portions of this record may have been created with voice recognition software Level of Care: Express Care Visit Vital Signs Vital signs: Reviewed. MDM - Back Pain/Injury MDM Narrative Medical decision making narrative: I evaluated this in the [facility] care. History is obtained from patient who is an independent historian and physical exam was performed.? Available medical records were reviewed. ? Exam findings and relevant testing show no acute concerns or changes; patient is non-toxic appearing and is in no distress. No risk factors or findings concerning for epidural abscess, diskitis, vertebral osteomyelitis, cord compression, cauda equina, vertebral fracture or bone malignancy, AAA, or pyelonephritis. Patient instructed to consider further imaging and workup through their primary care physician as an outpatient if symptoms persist. ? Differential diagnosis and treatment plan were discussed with the patient. Patient agrees with discussion and after shared medical decision making agrees with plan of care. All questions were answered to the patient's satisfaction. Patient is appropriate for outpatient treatment and follow-up. Imaging Data Radiologist's impression: EXAMINATION: [id number] Exam Date/Time: 03/08/2025 18:36 CDT HISTORY: fall Comparison: None available. RESULT: Lines, tubes, and devices: None. Lungs and pleura: Biapical pleural scarring. Cardiothymic silhouette: Stable. Granulomatous calcifications Other: No acute osseous or upper abdominal finding. IMPRESSION: No acute cardiopulmonary process. No acute osseous finding in the right ribs. Critical Care Time Critical Care Time Critical Care Time: No Discharge Plan Discharge Clinical Impression: Rib pain on right side, Back pain Patient Disposition: Home Condition: Stable Instructions: General Patient Instructions Additional Instructions: Please follow up with your Primary Care Doctor as needed. Activity as tolerated. Take Motrin 800mg every 6-8 hours with food for the next 2-3 days, take muscle relaxers every 8 hours as needed for muscle spasm- do not drive or make any important decisions while on this medication for it can make you drowsy. You may apply ice to the area as needed. If you experience any worsening pain, swelling, numbness, weakness please go to ER Patient Language: Korean Prescriptions: New cyclobenzaprine 10 mg tablet 10 mg PO TID PRN (Reason: muscle spasm) Qty: 20 0RF ibuprofen 800 mg tablet 800 mg PO Q6H PRN (Reason: pain) Qty: 30 0RF No Action No Home Medications Follow-up/Referrals: Cinthia Hobson MD [Primary Care Provider] - Time of Disposition: 19:17
[2025-03-08 18:32] VITALS: BP 118/78; PULSE 83; RESP 16; TEMP 37; O2SAT 100
== END 2025-03-08 19:21 | disposition home or self-care (01) ==
PROVIDERS: Emergency Provider Nurse Practitioner; PCP Family Medicine
DX: R07.89 Other chest pain (principal); M54.6 Pain in thoracic spine; Z87.891 Personal history of nicotine dependence
CPT/HCPCS: 71101; 99213; G0463